=== PATIENT | male | born 1960 | race Caucasian/White ===

== ENCOUNTER 2024-05-11 02:10 | Observation (INO) ==
[2024-05-11] MEDS: ONDANSETRON INJ 2 MG/ML 2 ML VIAL IV STA (02:35)
[2024-05-11] MEDS: MoRPHine SULFATE 4 MG/ML 1 ML CARP\\VIAL IV PRN ×2 (02:36→09:32)
[2024-05-11 02:58] LABS: Basophils # (auto) 0.03 K/uL (0.00-0.20); Basophils % (auto) 0.3 %; Eosinophils # (auto) 0.25 K/uL (0.00-0.50); Eosinophils % (auto) 2.2 %; Hematocrit (blood only) 43.3 % (42.0-52.0); Hemoglobin 15.2 g/dl (14.0-18.0); Immature Granulocytes # (auto) 0.03 K/uL (0.01-0.20); Immature Granulocytes % (auto) 0.3 %; Lymphocytes # (auto) 3.45 K/uL (1.20-3.40); Lymphocytes % (auto) 30.1 %; Mean Corpuscular Hemoglobin 29.7 pg (25.0-34.0); Mean Corpuscular Hgb Conc 35.1 g/dL (32.0-36.0); Mean Corpuscular Volume 84.7 fL (80.0-100.0); Mean Platelet Volume 11.3 fL (9.4-12.4); Monocytes % (auto) 7.9 %; Neutrophils % (auto) 59.2 %; Platelet Count 234 K/uL (130-400); RDW Coefficient of Variation 12.6 % (11.5-14.5); RDW Standard Deviation 38.9 fL (36.4-46.3); Red Blood Count 5.11 M/uL (4.70-6.10); White Blood Count 11.46 K/ul (4.8-10.8)
[2024-05-11 03:06] LABS: BUN Creatinine Ratio 22.4 (10-20); Calcium 9.9 mg/dl (8.6-10.3); Potassium 4.1 mmol/L (3.5-5.1)
[2024-05-11 03:12] LABS: Troponin I High Sensitivity 5.8 pg/ml (0-20)
[2024-05-11 03:38] LABS: Albumin Globulin Ratio 1.6 (0.9-2); Albumin Level 4.9 gm/dl (3.4-5.0); Bilirubin,Total 0.5 mg/dl (0.2-1.0); Total Protein 7.9 gm/dl (6.0-8.3)
[2024-05-11] MEDS: OPTIRAY 320 100ml IV ONE (03:43)
[2024-05-11] MEDS: SODIUM CHLORIDE 0.9% 1,000 ML IV ONE ×2 (04:04→04:59)
--- NOTE | 2024-05-11 05:09 | Emergency Department Note ---
History of Present Illness General Chief complaint: Abdominal Pain Stated complaint: ABD PAIN Time Seen by Provider: 05/11/24 02:19 History of Present Illness Maximum Pain Intensity: 5 This is a 63-year-old male presenting to the emergency department for evaluation of abdominal pain that began approximately 2 hours prior to ER evaluation. Patient states that he awoke with pain that is across the upper part of his abdomen. He rates the pain a 5/10 and it does radiate into his back. He took Tums, however this did not improve his discomfort. He intermittently may have had symptoms like this for a few months, but this seems to be the worst event. He has not had fevers or chills. No nausea or vomiting. He does have past history of appendectomy as a young child. Home Medications Medication Instructions Recorded Confirmed Type ascorbic acid (vitamin C) 1,000 mg 1 g PO DAILY 01/18/20 05/11/24 History tablet (Vitamin C) cholecalciferol (vitamin D3) 125 5,000 unit PO DAILY 06/19/20 05/11/24 History mcg (5,000 unit) tablet (Vitamin D3) Medical Marijauna 1 dose PO UD PRN Pain 02/09/21 05/11/24 History fluticasone propionate 50 2 spray intranasal DAILY PRN Nasal 05/10/21 05/11/24 History mcg/actuation nasal Congestion spray,suspension (Flonase Allergy Relief) albuterol sulfate 90 mcg/actuation 2 puff inhalation Q6H PRN 10/31/21 05/11/24 Rx aerosol inhaler (Ventolin HFA) Shortness Of Breath Or Wheezing #18 grams fluticasone propionate 115 2 puff inhalation BID #12 grams 02/07/23 05/11/24 Rx mcg-salmeterol 21 mcg/actuation HFA inhaler (Advair HFA) fras-gtt-laumn-nqaejraos-nbbcujoa-tdym-pectin 4 tab PO QAM PRN Other 08/06/23 05/11/24 History 1,000 mg tablet (Fiber 6) clobetasol 0.05 % topical cream 1 applic topical BID PRN eczema 08/06/23 05/11/24 Rx #15 grams escitalopram oxalate 10 mg tablet 10 mg PO UD 08/06/23 05/11/24 History (Lexapro) bupropion HCl 300 mg 24 hr tablet, 450 mg PO UD 05/05/24 05/11/24 History extended release rosuvastatin 10 mg tablet (Crestor) 10 mg PO UD 05/11/24 05/11/24 History Allergies Allergy/AdvReac Type Severity Reaction Status Date / Time latex Allergy Intermediate Rash Verified 05/05/24 08:28 Sulfa (Sulfonamide Allergy Intermediate Rash Verified 05/05/24 08:28 Antibiotics) Past Med/Surg History Problem List (Updated 05/12/24 @ 04:09 by Reyes Moore PA-C) Acute upper abdominal pain (Acute) Acute pancreatitis (Acute) Musculoskeletal chest pain Exertional dyspnea Impaired fasting glucose Allergic rhinitis Obesity (BMI 30-39.9) Family history of coronary artery disease Bifascicular block Dyslipidemia Multiple drug allergies Allergic reaction to sulfonamide Depression Allergy-induced asthma Stable; uses rescue inhaler maybe once per year Medical marijuana use Chronic back pain Sleep apnea CPAP Medical History History of COVID-19 10/2021- no hosp; resolved Obesity Eczema Hearing deficit B/L hearing aids Surgical History Hx of spinal surgery History of open reduction and internal fixation (ORIF) procedure Broken toe (hardware since removed) Hx of vasectomy History of colonoscopy with polypectomy 01/2020 Repeat 3 years History of wisdom tooth extraction Hx of appendectomy Family History Mother Colon cancer Diabetes COPD (chronic obstructive pulmonary disease) Asthma Lung disease Father Stroke Brother Cardiac disorder Myocardial infarction Other Cancer No family history of adverse response to anesthesia Denies family history of Lung cancer Social History Smoking Status: Never smoker Second Hand Exposure: No; Do You Dip or Chew Tobacco: No; Hx Alcohol Use: Yes Alcohol type: beer and hard liquor Alcohol Intake Frequency: 2-3 x/Week Hx Substance Use: No Preferred Language: Bahraini Communication Ability: Effective Visual Impairment: Limited Hearing Ability: Use of Hearing Aid Pond Supervisor Required: No Beliefs That Will Affect Care: None marital status: Current Living Situation: Spouse Current Living Situation Comment: with and dog in two story home current occupational status: employed How many Children do You have: 3 Other Information That Helps Us Care for You: No Feels Safe at Home: Yes Safety Concerns: Feels Safe At This Time Childhood Exposure to Second-Hand Smoke: Yes Diet: regular caffeine: Yes Dental Care, Regularly: Yes Physical Activity Frequency: Does not Exercise Seatbelt Use: always Sunscreen Use: Yes Do you think of yourself as: straight/heterosexual Assistive Devices: CPAP, Glasses and Hearing Aid - Bilateral Review of Systems A total of 10 systems reviewed and were otherwise negative Physical Exam Vital Signs Vital Signs - 24 hr 05/11/24 05:04 05/11/24 06:01 05/11/24 06:31 Temperature 36.6 C Pulse Rate 67 75 62 Pulse Rate from SpO2 Sensor 68 75 Respiratory Rate 16 20 Blood Pressure 161/102 H 128/86 Blood Pressure Mean 125 96 Pulse Oximetry 98 96 Oxygen Delivery Method Room Air Room Air 05/11/24 07:00 05/11/24 07:00 05/11/24 07:03 Temperature Pulse Rate 69 Pulse Rate from SpO2 Sensor 67 Respiratory Rate 18 Blood Pressure 138/87 138/87 Blood Pressure Mean 102 102 Pulse Oximetry 96 Oxygen Delivery Method 05/11/24 07:33 05/11/24 07:48 05/11/24 07:51 Temperature Pulse Rate 72 69 68 Pulse Rate from SpO2 Sensor 70 68 68 Respiratory Rate 16 18 24 Blood Pressure Blood Pressure Mean Pulse Oximetry 96 97 97 Oxygen Delivery Method 05/11/24 08:06 05/11/24 08:12 05/11/24 08:36 Temperature Pulse Rate 63 63 78 Pulse Rate from SpO2 Sensor 63 63 78 Respiratory Rate 18 18 24 Blood Pressure Blood Pressure Mean Pulse Oximetry 97 95 96 Oxygen Delivery Method 05/11/24 08:42 05/11/24 09:00 05/11/24 09:00 Temperature Pulse Rate 70 69 Pulse Rate from SpO2 Sensor 70 70 Respiratory Rate 22 25 H Blood Pressure 128/78 Blood Pressure Mean 95 Pulse Oximetry 96 95 Oxygen Delivery Method 05/11/24 09:12 Temperature Pulse Rate 71 Pulse Rate from SpO2 Sensor 71 Respiratory Rate 23 Blood Pressure Blood Pressure Mean Pulse Oximetry 96 Oxygen Delivery Method VITALS: Vitals are noted on the nurse's note and reviewed by myself. Vital signs stable. GENERAL: Well-developed, well-nourished, white male, who is moderately uncomfortable appearing, but pleasant HEAD: Normocephalic atraumatic. MOUTH: Mucous membranes moist. Tonsils are not enlarged. Pharynx without erythema, blood, or exudate. Uvula midline. Airway patent. NECK: Supple without nuchal rigidity. No lymphadenopathy. No thyromegaly. Cervical spine is nontender. HEART: Regular rate and rhythm without murmurs gallops or rubs. LUNGS: Clear to auscultation bilaterally without wheezes, rales or rhonchi. No retractions or accessory muscle use. ABDOMEN: Positive normal bowel sounds x 4. Soft, protuberant abdomen with tenderness in the epigastric region. MUSCULOSKELETAL: No muscle atrophy, erythema, or edema noted. Full range of motion in all extremities. Course Administered Medications Bupropion HCl (Bupropion Xl 150 Mg Tabcr) 450 mg PO QAM [facility] Stop: 06/10/24 12:14 Last Admin: 05/11/24 13:21 Dose: 450 mg Documented By: MONALISA Sodium Chloride (Nss) 1,000 mls @ 200 mls/hr IV .Q5H [facility] Stop: 05/12/24 12:00 Last Admin: 05/12/24 03:44 Dose: 200 mls/hr Documented By: Infusion: 05/12/24 03:41 Dose: Infused Documented By: Admin: 05/11/24 22:41 Dose: 200 mls/hr Documented By: Infusion: 05/11/24 22:35 Dose: Infused Documented By: Admin: 05/11/24 17:35 Dose: 200 mls/hr Documented By: Infusion: 05/11/24 17:35 Dose: Infused Documented By: Admin: 05/11/24 12:38 Dose: 200 mls/hr Documented By: MONALISA Morphine Sulfate (Morphine Sulfate 4 Mg/Ml 1 Ml Carp\Vial) 4 mg IV Q3H PRN PRN Reason: Severe Pain (Scale 7, 8, 9,10) Stop: 05/25/24 06:18 Last Admin: 05/12/24 00:57 Dose: 4 mg Documented By: Admin: 05/11/24 15:12 Dose: 4 mg Documented By: Admin: 05/11/24 09:32 Dose: 4 mg Documented By: AM Morphine Sulfate (Morphine Sulfate 2 Mg/Ml Carp) 2 mg IV Q3H PRN PRN Reason: Moderate Pain (Scale 4, 5, 6) Stop: 05/25/24 06:18 Last Admin: 05/11/24 18:47 Dose: 2 mg Documented By: MONALISA Discontinued Medications Escitalopram Oxalate (Escitalopram Oxalate 10 Mg Tab) 10 mg PO DAILY [facility] Stop: 06/10/24 12:14 Last Admin: 05/11/24 13:20 Dose: Not Given Documented By: MONALISA Sodium Chloride (Nss) 1,000 mls @ 999 mls/hr IV .Q1H1M ONE Stop: 05/11/24 04:42 Last Infusion: 05/11/24 05:00 Dose: Infused Documented By: Admin: 05/11/24 04:04 Dose: 999 mls/hr Documented By: MARANDA Sodium Chloride (Nss) 1,000 mls @ 999 mls/hr IV .Q1H1M ONE Stop: 05/11/24 05:52 Last Infusion: 05/11/24 06:39 Dose: Infused Documented By: Admin: 05/11/24 04:59 Dose: 999 mls/hr Documented By: MARANDA Potassium Chloride/Sodium Chloride (Normal Saline W/20 Meq Kcl) 20 meq in 1,000 mls @ 80 mls/hr IV .[id number] [facility] Stop: 05/11/24 18:59 Last Infusion: 05/11/24 12:42 Dose: Infused Documented By: Admin: 05/11/24 07:44 Dose: 80 mls/hr Documented By: LV Ioversol (Optiray 320 100ml) 92 ml IV ONCE ONE Stop: 05/11/24 03:35 Last Admin: 05/11/24 03:43 Dose: 92 ml Documented By: BENEDICT Morphine Sulfate (Morphine Sulfate 4 Mg/Ml 1 Ml Carp\Vial) 4 mg IV Q30M PRN PRN Reason: Pain Stop: 05/25/24 02:25 Last Admin: 05/11/24 06:41 Dose: 4 mg Documented By: Admin: 05/11/24 04:48 Dose: 4 mg Documented By: Admin: 05/11/24 04:03 Dose: 4 mg Documented By: Admin: 05/11/24 02:36 Dose: 4 mg Documented By: MARANDA Ondansetron HCl (Ondansetron Inj 2 Mg/Ml 2 Ml Vial) 4 mg IV NOW STA Stop: 05/11/24 02:27 Last Admin: 05/11/24 02:35 Dose: 4 mg Documented By: MARANDA Medical Decision Making Differential Diagnosis Differential diagnosis: Etiologies such as biliary colic, cholecystitis, hepatitis, pancreatitis, cardiac disease, pancreatitis, gastritis, peptic ulcer disease, appendicitis, cystitis, diverticulitis, mesenteric ischemia, inflammatory bowel disease, ileus, bowel obstruction, testicular/adnexal torsion, aortic pathology, shingles, as well as others were considered Laboratory Data 05/11/24 02:26 05/11/24 02:26 Lab Results 05/11/24 Range/Units 02:26 WBC 11.46 H (4.8-10.8) K/ul RBC 5.11 (4.70-6.10) M/uL Hgb 15.2 (14.0-18.0) g/dl Hct 43.3 (42.0-52.0) % MCV 84.7 (80.0-100.0) fL MCH 29.7 (25.0-34.0) pg MCHC 35.1 (32.0-36.0) g/dL RDW Std Deviation 38.9 (36.4-46.3) fL RDW Coeff of Tory 12.6 (11.5-14.5) % Plt Count 234 (130-400) K/uL MPV 11.3 (9.4-12.4) fL Immature Gran % (Auto) 0.3 % Neut % (Auto) 59.2 % Lymph % (Auto) 30.1 % [place] % (Auto) 7.9 % Eos % (Auto) 2.2 % Baso % (Auto) 0.3 % Neut # (Auto) 6.80 H (1.40-6.50) K/uL Lymph # (Auto) 3.45 H (1.20-3.40) K/uL [place] # (Auto) 0.90 H (0.11-0.59) K/uL Eos # (Auto) 0.25 (0.00-0.50) K/uL Baso # (Auto) 0.03 (0.00-0.20) K/uL Immature Gran # (Auto) 0.03 (0.01-0.20) K/uL Sodium 137 (136-145) mmol/L Potassium 4.1 (3.5-5.1) mmol/L Chloride 104 (98-107) mmol/L Carbon Dioxide 26 (21-32) mmol/L Anion Gap 7 (3-11) BUN 24 H (6-23) mg/dl Creatinine 1.07 (0.6-1.4) mg/dl Est Cr Clr Drug Dosing 91.0 ml/min eGFR 77.49 BUN/Creatinine Ratio 22.4 H (10-20) Glucose 150 H (70-99(Fasting)) mg/dl Calcium 9.9 (8.6-10.3) mg/dl Total Bilirubin 0.5 (0.2-1.0) mg/dl AST 27 (13-39) U/L ALT 40 (7-52) U/L Alkaline Phosphatase 71 (34-104) U/L Troponin I High Sens 5.8 (0-20) pg/ml Total Protein 7.9 (6.0-8.3) gm/dl Albumin 4.9 (3.4-5.0) gm/dl Globulin 3.0 (2.5-4.0) gm/dl Albumin/Globulin Ratio 1.6 (0.9-2) Triglycerides 106 (0-150) mg/dl Cholesterol 127 (0-200) mg/dl LDL Cholesterol, Calc 61 mg/dl VLDL Cholesterol, Calc 21 (0-30) mg/dl HDL Cholesterol 45 mg/dl Cholesterol/HDL Ratio 2.8 (0-5) Amylase 2820 H (25-115) U/L Lipase 8231 H (11-82) U/L Imaging Data Radiologist's Impression: Abdomen/Pelvis CT 05/11/24 02:26 EXAM: CT abd pelvis IV con only CLINICAL HISTORY: abd pain/cramping 92 cc opti 320 TECHNIQUE: Contiguous axial images were obtained from the level of the diaphragm to the pubic symphysis with intravenous contrast. Coronal and sagittal reconstructions were likewise performed and indicated to increase the sensitivity for detecting clinically relevant pathology. If IV contrast material had not been administered, the likelihood of detecting abnormalities relevant to the patient's condition would have been substantially decreased. CT scan was performed according to ALARA (as low as reasonable achievable). COMPARISON: None. FINDINGS: The visualized lung bases are clear. The liver shows normal enhancement with a prominent papillary process of caudate lobe (normal anatomical variant). No focal liver lesions are seen. There is no intra or extrahepatic biliary ductal dilatation. Hepatic vasculature is patent. The gallbladder is unremarkable. The spleen and adrenal glands are unremarkable. The pancreas appears bulky with mild peripancreatic fat stranding and fluid. No organized or obvious hypoenhancing parenchymal area to suggest necrosis is seen on the present scan. The kidneys are normal in size and enhancement. There is no hydronephrosis or perinephric fat stranding. No renal calculi or renal masses are identified. The ureters are normal in caliber. The bladder is normal in contour. Few enlarged periportal and peripancreatic lymph nodes are noted, largest measuring 1.1 cm in short axis diameter (reactive lymphadenopathy). Redundant sigmoid colon is noted. Few small mural outpouchings are seen from the sigmoid and descending colon, without adjacent fluid or fat stranding Left small fat-containing inguinal hernia is noted. Anterior wedge-shaped compression fracture of L2 vertebral body is seen, with loss of 50% vertebral body height. IMPRESSION: 1. Acute edematous pancreatitis, with modified CT severity index of 4/10 (moderate pancreatitis). 2. Reactive lymphadenopathy. 3. Uncomplicated colonic diverticulosis. 4. Anterior wedge-shaped compression fracture of L2 vertebral body, with loss of 50% vertebral body height. Electronically signed by Shawn Austin 05-11-2024 05:16 AM MDM Narrative Physical exam and history were performed. Nursing notes, EMR, and Medication List were personally reviewed. No social concerns were identified as barriers to patients care. Patient appears to have abdominal pain bringing him to the ER. He does seem uncomfortable on presentation. IV access was established and labs were obtained. Patient was hydrated with normal saline and given IV morphine and IV Zofran for comfort. He was sent to CT scan for imaging of his abdomen and pelvis. Patient's blood work is as above and was reviewed. He does not have a significantly elevated white blood cell count, gross anemia, or significant electrolyte imbalance. Patient's lipase and amylase are both markedly elevated consistent with pancreatitis. LFTs are preserved. CT scan was reviewed by myself and radiology, and does show what seems to be an isolated pancreatitis. Remaining labs are essentially unremarkable. Patient did require several doses of analgesia. He does not seem well for discharge and escalation of care is felt to be necessary. Case was discussed with the on-call hospitalist, Dr. Giron, who agreed to evaluate the patient here in the ER. Please see the hospitalist dictation for further patient course, plan, and disposition. The chart was completed utilizing [employer] Speech Voice Recognition Software. Grammatical errors, random word insertions, pronoun errors, and incomplete sentences are an occasional consequence of this system due to software limitations, ambient noise, and hardware issues. Any formal questions or concerns about the content, text, or information contained within the body of this dictation should be directly addressed to the provider for clarification. Impression & Plan Acute pancreatitis, Acute upper abdominal pain Discharge Plan Visit Data Chief Complaint: Abdominal Pain Stated Complaint: ABD PAIN ED Provider: Brittanie Moss ED Midlevel Provider: Reyes Moore Discharge Problem: Acute pancreatitis, Acute upper abdominal pain Patient Disposition: Admitted As Inpatient Discharge Instructions Interventions: ED Discharge Assessment Last Done: 05/11/24 11:38
--- NOTE | 2024-05-11 05:48 | CT Scan Report ---
EXAM: CT abd pelvis IV con only CLINICAL HISTORY: abd pain/cramping 92 cc opti 320 TECHNIQUE: Contiguous axial images were obtained from the level of the diaphragm to the pubic symphysis with intravenous contrast. Coronal and sagittal reconstructions were likewise performed and indicated to increase the sensitivity for detecting clinically relevant pathology. If IV contrast material had not been administered, the likelihood of detecting abnormalities relevant to the patient's condition would have been substantially decreased. CT scan was performed according to ALARA (as low as reasonable achievable). COMPARISON: None. FINDINGS: The visualized lung bases are clear. The liver shows normal enhancement with a prominent papillary process of caudate lobe (normal anatomical variant). No focal liver lesions are seen. There is no intra or extrahepatic biliary ductal dilatation. Hepatic vasculature is patent. The gallbladder is unremarkable. The spleen and adrenal glands are unremarkable. The pancreas appears bulky with mild peripancreatic fat stranding and fluid. No organized or obvious hypoenhancing parenchymal area to suggest necrosis is seen on the present scan. The kidneys are normal in size and enhancement. There is no hydronephrosis or perinephric fat stranding. No renal calculi or renal masses are identified. The ureters are normal in caliber. The bladder is normal in contour. Few enlarged periportal and peripancreatic lymph nodes are noted, largest measuring 1.1 cm in short axis diameter (reactive lymphadenopathy). Redundant sigmoid colon is noted. Few small mural outpouchings are seen from the sigmoid and descending colon, without adjacent fluid or fat stranding Left small fat-containing inguinal hernia is noted. Anterior wedge-shaped compression fracture of L2 vertebral body is seen, with loss of 50% vertebral body height. IMPRESSION: 1. Acute edematous pancreatitis, with modified CT severity index of 4/10 (moderate pancreatitis). 2. Reactive lymphadenopathy. 3. Uncomplicated colonic diverticulosis. 4. Anterior wedge-shaped compression fracture of L2 vertebral body, with loss of 50% vertebral body height. Electronically signed by Shawn Austin 05-11-2024 05:16 AM
--- NOTE | 2024-05-11 06:22 | History & Physical Report ---
Date of Service May 11, 2024 Assessment & Plan (1) Acute pancreatitis: (2) Dyslipidemia: (3) Allergy-induced asthma: (4) Chronic back pain: (5) Sleep apnea: Plan Edematous pancreatitis- Graded as moderate/10 Lipase 8231, with normal LFTs Follow CBC with differential, chemistry profile, lipase and magnesium every morning Acetaminophen 650 mg by mouth every 6 hours as needed for mild pain or fever Morphine sulfate 2 mg IV every 3 hours as needed for moderate pain Morphine sulfate 4 mg IV every 3 hours as needed for severe pain NSS initial 1 L bolus, have asked the ED to give a second liter bolus Then maintenance normal saline plus KCl 20 mEq at 80 mL/h x 1 L Check a fasting lipid panel to assess for hypertriglyceridemia Allergy induced asthma Continue Advair discus or substitute, Flonase nasal spray, albuterol HFA as needed Obstructive sleep apnea- CPAP at bedtime Depression- Continue bupropion Lexapro History of Present Illness Chief Complaint: The patient presents to the emergency department with severe abdominal pain that began before going to bed, and kept him from sleeping overnight, and thus presents to the ED for assessment Primary Care Provider: Eric Muller DO The patient is a 63-year-old male with a past medical history including impaired fasting glucose, obesity, bifascicular block, depression, allergy induced asthma, medical marijuana use, chronic back pain syndrome status post lumbar discectomy, and MARYBEL. The patient reports that he had ongoing back pain for a few months, that he attributed to ranging his back a few months ago aggravating his chronic low back pain secondary to underlying discectomy. He reports that he had some indigestion over the past couple days, and then developed the acute onset of severe pain which kept him from sleeping this evening, and come to the ED for assessment. His who is with him, reports that he has had bad breath for the past couple months, and he then reports that his stool pattern has been significantly different during that time as well, with stools being more loose in consistency and more frequent. He denies any change in dietary patterns otherwise. He is on no new medications, has been taking his prescription medications as directed. Allergies Allergy/AdvReac Type Severity Reaction Status Date / Time latex Allergy Intermediate Rash Verified 05/05/24 08:28 Sulfa (Sulfonamide Allergy Intermediate Rash Verified 05/05/24 08:28 Antibiotics) Home Medications Medication Instructions Recorded Confirmed Type ascorbic acid (vitamin C) 1,000 mg 1 g PO DAILY 01/18/20 05/05/24 History tablet (Vitamin C) cholecalciferol (vitamin D3) 125 5,000 unit PO DAILY 06/19/20 05/05/24 History mcg (5,000 unit) tablet (Vitamin D3) Medical Marijauna 1 dose PO UD PRN Pain 02/09/21 05/05/24 History fluticasone propionate 50 2 spray intranasal DAILY PRN Nasal 05/10/21 05/05/24 History mcg/actuation nasal Congestion spray,suspension (Flonase Allergy Relief) albuterol sulfate 90 mcg/actuation 2 puff inhalation Q6H PRN 10/31/21 05/05/24 Rx aerosol inhaler (Ventolin HFA) Shortness Of Breath Or Wheezing #18 grams fluticasone propionate 115 2 puff inhalation BID #12 grams 02/07/23 05/05/24 Rx mcg-salmeterol 21 mcg/actuation HFA inhaler (Advair HFA) rosuvastatin 10 mg tablet (Crestor) 10 mg PO HS #90 tabs 06/19/23 05/05/24 Rx ljqa-siu-ftbqa-ngtedttnv-vlzwzrmi-nowu-pectin 4 tab PO QAM PRN 08/06/23 05/05/24 History 1,000 mg tablet (Fiber 6) clobetasol 0.05 % topical cream 1 applic topical BID PRN eczema 08/06/23 05/05/24 Rx #15 grams escitalopram oxalate 10 mg tablet 10 mg PO DAILY 08/06/23 05/05/24 History (Lexapro) bupropion HCl 300 mg 24 hr tablet, 450 mg PO QAM 05/05/24 History extended release Past Med/Surg History Problem List (Updated 05/11/24 @ 06:51 by Sherwin Giron MD) Acute pancreatitis Musculoskeletal chest pain Exertional dyspnea Impaired fasting glucose Allergic rhinitis Obesity (BMI 30-39.9) Family history of coronary artery disease Bifascicular block Dyslipidemia Multiple drug allergies Allergic reaction to sulfonamide Depression Allergy-induced asthma Stable; uses rescue inhaler maybe once per year Medical marijuana use Chronic back pain Sleep apnea CPAP Medical History History of COVID-19 10/2021- no hosp; resolved Obesity Eczema Hearing deficit B/L hearing aids Surgical History Hx of spinal surgery History of open reduction and internal fixation (ORIF) procedure Broken toe (hardware since removed) Hx of vasectomy History of colonoscopy with polypectomy 01/2020 Repeat 3 years History of wisdom tooth extraction Hx of appendectomy Family History Mother Colon cancer Diabetes COPD (chronic obstructive pulmonary disease) Asthma Lung disease Father Stroke Brother Cardiac disorder Myocardial infarction Other Cancer No family history of adverse response to anesthesia Denies family history of Lung cancer Social History Smoking Status: Never smoker Second Hand Exposure: No; Do You Dip or Chew Tobacco: No; Hx Alcohol Use: Yes Alcohol type: beer, wine and hard liquor Alcohol Intake Frequency: 2-3 x/Week Hx Substance Use: Yes (medical marijuana- advised) Prescribed Medications: Marijuana Last Used Substance Other:: 1 week ago- 03/2023 Preferred Language: Mac[place] Communication Ability: Effective Visual Impairment: Limited Hearing Ability: Use of Hearing Aid [employer] Required: No marital status: Current Living Situation: Spouse current occupational status: employed How many Children do You have: 3 Feels Safe at Home: Yes Childhood Exposure to Second-Hand Smoke: Yes Diet: regular caffeine: Yes Dental Care, Regularly: Yes Physical Activity Frequency: Does not Exercise Seatbelt Use: always Sunscreen Use: Yes Do you think of yourself as: straight/heterosexual Assistive Devices: CPAP, Glasses and Hearing Aid - Bilateral Review of Systems Review of Systems: The patient denies chest pain, palpitations, shortness of breath, dyspnea on exertion, cough, lower extremity swelling, sore throat, fevers, chills, sweats, nausea, vomiting, blood in urine or stool, dysuria, urinary frequency or urgency, lightheadedness, dizziness, headache, memory loss, loss of consciousness, rash, abnormal bruising or bleeding, imbalance, focal or generalized weakness, numbness or tingling in arms or legs, generalized arthralgias or myalgias, neck pain, or night sweats. The review of systems is otherwise negative other than for that already noted above, and at least 10 systems have been reviewed. Physical Exam Physical Exam: The patient is awake, alert and oriented 3, well developed and well nourished, normocephalic and atraumatic, lying in bed and in no acute distress. HEENT--PERRL, EOMI, mucous membranes and oropharynx mildly dry. Neck--supple. No JVD. No bruits. Thyroid normal, trachea midline, no adenopathy. Heart--normal S1 and S2. No murmurs, rubs or gallops. Lungs--clear bilaterally, no respiratory distress, no accessory muscle use. Abdomen--normal bowel sounds and soft. Nontender. Nondistended. Morbidly obese Extremities-- No edema. Dermatologic--normal skin turgor, normal color, no abnormal lymph nodes, no rash . Neurologic--cranial nerves II through XII grossly intact. Rheumatologic--normal range of motion. Psychiatric--normal affect. Results & Data Results & Data Vital Signs (Past 12 Hours) Vital Signs Temp Pulse Pulse Resp BP BP Pulse Ox 05/11/24 02:39 73 05/11/24 02:26 75 16 96 05/11/24 02:26 36 C L 75 18 168/104 H 98 05/11/24 02:12 36.4 C L 76 22 190/101 H 95 O2 Del Method 05/11/24 02:39 05/11/24 02:26 Room Air 05/11/24 02:26 Room Air 05/11/24 02:12 Room Air Laboratory Results Laboratory Results WBC 11.46 K/ul (4.8-10.8) H 05/11/24 02:26 RBC 5.11 M/uL (4.70-6.10) 05/11/24 02:26 Hgb 15.2 g/dl (14.0-18.0) 05/11/24 02:26 Hct 43.3 % (42.0-52.0) 05/11/24 02:26 MCV 84.7 fL (80.0-100.0) 05/11/24 02:26 MCH 29.7 pg (25.0-34.0) 05/11/24 02:26 MCHC 35.1 g/dL (32.0-36.0) 05/11/24 02:26 RDW Std Deviation 38.9 fL (36.4-46.3) 05/11/24 02: RDW Coeff of Tory 12.6 % (11.5-14.5) 05/11/24 02:26 Plt Count 234 K/uL (130-400) 05/11/24 02:26 MPV 11.3 fL (9.4-12.4) 05/11/24 02:26 Immature Gran % (Auto) 0.3 % 05/11/24 02:26 Neut % (Auto) 59.2 % 05/11/24 02:26 Lymph % (Auto) 30.1 % 05/11/24 02:26 [place] % (Auto) 7.9 % 05/11/24 02:26 Eos % (Auto) 2.2 % 05/11/24 02:26 Baso % (Auto) 0.3 % 05/11/24 02:26 Neut # (Auto) 6.80 K/uL (1.40-6.50) H 05/11/24 02:26 Lymph # (Auto) 3.45 K/uL (1.20-3.40) H 05/11/24 02:26 [place] # (Auto) 0.90 K/uL (0.11-0.59) H 05/11/24 02:26 Eos # (Auto) 0.25 K/uL (0.00-0.50) 05/11/24 02:26 Baso # (Auto) 0.03 K/uL (0.00-0.20) 05/11/24 02:26 Immature Gran # (Auto) 0.03 K/uL (0.01-0.20) 05/11/24 02:26 Sodium 137 mmol/L (136-145) 05/11/24 02:26 Potassium 4.1 mmol/L (3.5-5.1) 05/11/24 02:26 Chloride 104 mmol/L (98-107) 05/11/24 02:26 Carbon Dioxide 26 mmol/L (21-32) 05/11/24 02:26 Anion Gap 7 (3-11) 05/11/24 02:26 BUN 24 mg/dl (6-23) H 05/11/24 02:26 Creatinine 1.07 mg/dl (0.6-1.4) 05/11/24 02:26 Est Cr Clr Drug Dosing 91.0 ml/min 05/11/24 02:26 eGFR 77.49 05/11/24 02:26 BUN/Creatinine Ratio 22.4 (10-20) H 05/11/24 02:26 Glucose 150 mg/dl (70-99(Fasting)) H 05/11/24 02:26 Calcium 9.9 mg/dl (8.6-10.3) 05/11/24 02:26 Total Bilirubin 0.5 mg/dl (0.2-1.0) 05/11/24 02:26 AST 27 U/L (13-39) 05/11/24 02:26 ALT 40 U/L (7-52) 05/11/24 02:26 Alkaline Phosphatase 71 U/L (34-104) 05/11/24 02:26 Troponin I High Sens 5.8 pg/ml (0-20) 05/11/24 02:26 Total Protein 7.9 gm/dl (6.0-8.3) 05/11/24 02:26 Albumin 4.9 gm/dl (3.4-5.0) 05/11/24 02:26 Globulin 3.0 gm/dl (2.5-4.0) 05/11/24 02:26 Albumin/Globulin Ratio 1.6 (0.9-2) 05/11/24 02:26 Amylase 2820 U/L (25-115) H 05/11/24 02:26 Lipase 8231 U/L (11-82) H 05/11/24 02:26 Impressions Abdomen/Pelvis CT 05/11/24 02:26 EXAM: CT abd pelvis IV con only CLINICAL HISTORY: abd pain/cramping 92 cc opti 320 TECHNIQUE: Contiguous axial images were obtained from the level of the diaphragm to the pubic symphysis with intravenous contrast. Coronal and sagittal reconstructions were likewise performed and indicated to increase the sensitivity for detecting clinically relevant pathology. If IV contrast material had not been administered, the likelihood of detecting abnormalities relevant to the patient's condition would have been substantially decreased. CT scan was performed according to ALARA (as low as reasonable achievable). COMPARISON: None. FINDINGS: The visualized lung bases are clear. The liver shows normal enhancement with a prominent papillary process of caudate lobe (normal anatomical variant). No focal liver lesions are seen. There is no intra or extrahepatic biliary ductal dilatation. Hepatic vasculature is patent. The gallbladder is unremarkable. The spleen and adrenal glands are unremarkable. The pancreas appears bulky with mild peripancreatic fat stranding and fluid. No organized or obvious hypoenhancing parenchymal area to suggest necrosis is seen on the present scan. The kidneys are normal in size and enhancement. There is no hydronephrosis or perinephric fat stranding. No renal calculi or renal masses are identified. The ureters are normal in caliber. The bladder is normal in contour. Few enlarged periportal and peripancreatic lymph nodes are noted, largest measuring 1.1 cm in short axis diameter (reactive lymphadenopathy). Redundant sigmoid colon is noted. Few small mural outpouchings are seen from the sigmoid and descending colon, without adjacent fluid or fat stranding Left small fat-containing inguinal hernia is noted. Anterior wedge-shaped compression fracture of L2 vertebral body is seen, with loss of 50% vertebral body height. IMPRESSION: 1. Acute edematous pancreatitis, with modified CT severity index of 4/10 (moderate pancreatitis). 2. Reactive lymphadenopathy. 3. Uncomplicated colonic diverticulosis. 4. Anterior wedge-shaped compression fracture of L2 vertebral body, with loss of 50% vertebral body height. Electronically signed by Shawn Austin 05-11-2024 05:16 AM Code Status & VTE Plan Code Status full code PG Care Time/CCT Total # of Minutes Spent Total Time Spent with Patient: Total time spent is greater than 50% in coordination of care (as documented) at patient's floor/unit and/or counseling patient: Coding Level of Care Code 90230 INT INP/OBS CARE 3/75MIN Diagnoses Acute pancreatitis K85.90 Dyslipidemia E78.5 Allergy-induced asthma J45.909 Chronic back pain M54.9; G89.29 Sleep apnea G47.30
[2024-05-11 07:08] LABS: Chol HDL Ratio 2.8 (0-5)
[2024-05-11] MEDS: NSS + 20MEQ KCL 20 MEQ/1,000 ML BAG IV SCH (07:44)
--- NOTE | 2024-05-11 08:35 | Electrocardiogram Report ---
Test Reason : Blood Pressure : */* mmHG Vent. Rate : 77 BPM Atrial Rate : 77 BPM P-R Int : 170 ms QRS Dur : 142 ms QT Int : 418 ms P-R-T Axes : 39 -59 21 degrees QTcB Int : 473 ms Normal sinus rhythm Right bundle branch block with repolarization abnormality Left anterior fascicular block Abnormal ECG When compared with ECG of 05-May-2024 09:04, T wave inversion more evident in Anterior leads Confirmed by Bebo Thornton ([id number]) on 05/11/2024 8:34:34 AM Referred By: REFERRED SELF Confirmed By: Bebo Thornton
[2024-05-11] MEDS ORDERED: ALBUTEROL HFA 8 GM INHALER INH PRN (12:01)
[2024-05-11] MEDS ORDERED: FLUTICASONE PROPIONATE NA SPR 16 GM BTL NAE PRN (12:01)
[2024-05-11] MEDS: SODIUM CHLORIDE 0.9% 1,000 ML IV SCH (12:38)
--- NOTE | 2024-05-11 12:52 | Communication Note ---
Date of Service: May 11, 2024 63 y/o man admitted this AM, moderate acute pancreatitis of unknown etiology CT abdomen/pelvis without contrast showed moderate pancreatitis, no gallstones. AST/ALT not elevated. He has had episodes of intermittent mid-epigastric pain recent years. Ordered abdominal US to check for gallstone dz Triglycerides not elevated Has had some regular alcohol use but never more than 3-4 drinks Has taken NSAIDS recently for back pain (naproxen at HS PRN), is on rosuvastatin, no new meds No personal or family history of pancreatitis Plan: Acute pancreatitis - aggressive IVF x 48h - had 2L IVD in ED, continue IV NS (LR shortage) at 200/h. Symptom control. Sips/chips. AM CMP CBC - hold rosuvastatin though statin-induced pancreatitis is rare - Abdominal US - MRCP if no clear etiology found Possibly developing mild ileus related to acute pancreatitis - mild distention on exam but with active bowel tones - supportive care L2 compression fracture - confirmed this is an old fracture from a traumatic fall on construction site. Chronic LBP with recent flareup (vs pancreatitis related back pain) Updated his , son at bedside
[2024-05-11] MEDS: ESCITALOPRAM OXALATE 10 MG TAB PO SCH (13:20)
[2024-05-11] MEDS: buPROPion XL 150 MG TABCR PO SCH (13:21)
[2024-05-11] MEDS: MoRPHine SULFATE 2 MG/ML CARP IV PRN (18:47)
[2024-05-11] MEDS ORDERED: ROSUVASTATIN CALCIUM 10 MG TAB PO SCH (21:00)
--- NOTE | 2024-05-12 00:08 | Ultrasound Report ---
Exam(s): US ABDOMEN LIMITED EXAM: US Abdomen Limited, Right Upper Quadrant CLINICAL HISTORY: Reason for exam: acute pancreatitis, please evaluate for gallstones. TECHNIQUE: Real-time ultrasound of the right upper quadrant with image documentation. COMPARISON: No relevant prior studies available. FINDINGS: Liver: Hepatomegaly. No intrahepatic bile duct dilation. Gallbladder: Gallbladder wall measures 3 mm. No gallstones. Common bile duct: Unremarkable as visualized. No stones. No dilation. Pancreas: Unremarkable as visualized. Right kidney: Unremarkable. No stones. No solid mass. No hydronephrosis. IMPRESSION: No acute findings in the right upper quadrant. Electronically signed by: Bk Morgan MD 05/12/24 00:07 AM
[2024-05-12 06:45] LABS: Basophils # (auto) 0.02 K/uL (0.00-0.20); Basophils % (auto) 0.2 %; Eosinophils # (auto) 0.04 K/uL (0.00-0.50); Eosinophils % (auto) 0.4 %; Hematocrit (blood only) 38.8 % (42.0-52.0); Hemoglobin 13.1 g/dl (14.0-18.0); Immature Granulocytes # (auto) 0.03 K/uL (0.01-0.20); Immature Granulocytes % (auto) 0.3 %; Lymphocytes # (auto) 2.28 K/uL (1.20-3.40); Lymphocytes % (auto) 22.5 %; Mean Corpuscular Hgb Conc 33.8 g/dL (32.0-36.0); Mean Corpuscular Volume 85.8 fL (80.0-100.0); Mean Platelet Volume 11.3 fL (9.4-12.4); Monocytes # (auto) 0.83 K/uL (0.11-0.59); Monocytes % (auto) 8.2 %; Neutrophils # (auto) 6.93 K/uL (1.40-6.50); Neutrophils % (auto) 68.4 %; Platelet Count 188 K/uL (130-400); RDW Coefficient of Variation 12.7 % (11.5-14.5); RDW Standard Deviation 39.4 fL (36.4-46.3); Red Blood Count 4.52 M/uL (4.70-6.10); White Blood Count 10.13 K/ul (4.8-10.8)
[2024-05-12 07:27] LABS: Albumin Globulin Ratio 1.6 (0.9-2); Albumin Level 3.7 gm/dl (3.4-5.0); BUN Creatinine Ratio 18.3 (10-20); Bilirubin,Total 0.7 mg/dl (0.2-1.0); Calcium 8.3 mg/dl (8.6-10.3); Globulin 2.3 gm/dl (2.5-4.0); Potassium 4.2 mmol/L (3.5-5.1)
[2024-05-12] MEDS: FLUTICASONE/VILANTEROL 200/25MCG 14 PUFFS/INHALER INH SCH (08:55)
[2024-05-12 09:05] LABS: Magnesium 1.7 mg/dl (1.7-2.4)
--- NOTE | 2024-05-12 11:05 | Hospitalist Progress Note ---
Date of Service May 12, 2024 Assessment & Plan (1) Acute pancreatitis: (2) Dyslipidemia: (3) Chronic back pain: (4) Sleep apnea: Plan 63 y/o man admitted with moderate acute pancreatitis of unknown etiology. has improved with bowel rest, IV fluids though continues to have abdominal pain. CT abdomen/pelvis without contrast showed moderate pancreatitis, no gallstones. AST/ALT not elevated, Remains low today. He has had episodes of intermittent mid-epigastric pain recent years. abdominal US reviewedno evidence of gallstones Triglycerides not elevated Has had some regular alcohol use but never more than 3-4 drinks Has taken NSAIDS recently for back pain (naproxen at HS PRN), is on rosuvastatin, no new meds No personal or family history of pancreatitis Plan: Acute pancreatitis - aggressive IVF x 48h - continue IV NS (LR shortage) at 200/h through midday tomorrow. Symptom control with morphine IV as needed, antiemetics as needed. Advance diet to clear liquids. reviewed CBC and CMP today which are unremarkable with white blood count decreased to 10, LFTs remaining normal, creatinine remaining at baseline - hold rosuvastatin though statin-induced pancreatitis is rare - no clear etiology so may warrant advanced imaging either MRCP or EUS. Discussed this with Anup and his today he does not feel like he can tolerate MRCP even with some antianxiety medicine, had difficulty even tolerating open MRI for his back problems in the past, so he could need anesthesia if we attempted to get MRCP. Will consult gastroenterology mild ileus related to acute pancreatitis - improved/resolving, no longer distended passing normal amount of flatus today L2 compression fracture - confirmed this is an old fracture from a traumatic fall on construction site. Chronic LBP with recent flareup (vs pancreatitis related back pain) Allergy induced asthma Continue Advair discus or substitute, Flonase nasal spray, albuterol HFA as needed Obstructive sleep apnea- CPAP at bedtime Depression- Continue bupropion Lexapro DVT prophylaxis - enoxaparin Admission and Anticipated Discharge Date Admission Date: May 11, 2024 Subjective upper abdominal pain is still present but has improved since yesterday. no nausea/vomiting. tolerating chips/sips now passing flatus regularly no stools overnight Physical Exam 2 Physical Exam: PHYSICAL EXAMINATION Last 24h vital signs reviewed, see documentation in flowsheet General: comfortable appearing, no distress HEENT: Normocephalic, atraumatic, pupils round and equal, sclerae anicteric, no conjunctival injection, moist mucus membranes Lungs: Normal respiratory effort. Clear to auscultation bilaterally. No RRW Heart: Regular rate and rhythm, no murmurs. No JVD Abdomen: Soft, nondistended. tender to palpation in epigastric area without rigidity rebound or guarding. active Bowel sounds present. Extremities: Warm, dry, well-perfused. No extremity edema. Neuro: Alert and oriented x 4, face symmetric, moves 4 extremities well Psych: Normal affect and behavior Results & Data Results & Data Vital Signs (Past 12 Hours) Vital Signs Temp Pulse Resp BP Pulse Ox O2 Del Method 05/12/24 07:16 99.0 F 91 H 20 167/76 H 95 Room Air Laboratory Results 05/12/24 05:43 05/12/24 05:43 PG Care Time/CCT Total # of Minutes Spent Total Time Spent with Patient: Total time spent is greater than 50% in coordination of care (as documented) at patient's floor/unit and/or counseling patient: Coding Level of Care Code 67774 SUB INP/OBS CARE 3/50MIN Diagnoses Acute pancreatitis K85.90 Dyslipidemia E78.5 Chronic back pain M54.9; G89.29 Sleep apnea G47.30
--- NOTE | 2024-05-12 11:43 | Gastrointestinal Consultation ---
Date of Consultation May 12, 2024 Assessment & Plan (1) Acute pancreatitis: Plan Patient is a 63 year old male who is admitted with first episode of pancreatitis. he also has had some increased reflux symptoms. He tells me that he has increased his etoh use recently since the election and escalated from drinking beer to drinking whiskey and wine. This is likely the cause of his pancreatitis. - I advised he cease ETOH use. - would avoid nsaids. - recommend supportive care of IVF and pain control. - start famotidine 40mg once daily for indigestion symptoms. suspect increased indigestion symptoms also stem from increased alcohol intake with nsaid use. - further recommendations to follow, see Dr. Moe's append. Supervising Physician Co-Signing Physician Notes I examined the patient and reviewed patient's chart , laboratory data and imaging studies. I agree with with assessment and plan of care as suggested by advanced practice provider. Acute pancreatitis of unclear etiology. Negative abdominal ultrasound for gallstones, normal liver function tests, normal triglycerides. Moderate alcohol consumption, unlikely cause of acute pancreatitis. Continue supportive care. Continue famotidine. Further evaluation with an endoscopic ultrasound in 6 to 8 weeks will be arranged through our office. History of Present Illness Reason for Consultation: acute pancreatitis Requesting Physician: Klaudia Jones MD Attending Physician: Klaudia Jones MD History of Present Illness Patient is a 63 year old male with a past medical history including impaired fasting glucose, obesity, bifascicular block, depression, allergy induced asthma, medical marijuana use, chronic back pain syndrome status post lumbar discectomy, and MARYBEL who presented to the ED on 05/11 with complaints of 10/10 epigastric abdominal pain that had awoken him from his sleep. He tells me he has had some increased indigestion and has used famotidine as an outpatient with benefit. he admits to recent increase in nsaid use due to back pain. Upon evaluation in the ED, he had CT showing moderate acute pancreatitis. he had follow up US that was unremarkable. Patient tells me has a history of regular alcohol use of beer. He tells me it would not be unusual to have 2 beers a day. Since the recent election he admits he has been drinking more and has been drinking whiskey and wine. He can have some nausea and reflux type symptoms that seem to be worse with this. In the past year, he tells me he will have 3-4 stools daily that are formed, which is an increase in frequency for him. no blood in the stools or melena. no family history of pancreatitis. this is his first episode of pancreatitis. Since admission, he tells me his pain has significantly improved. he rates as a 10 today. 05/11/24 amylase 2820, lipase 8231, LFTs wnl. CT 05/11/24 Acute edematous pancreatitis, with modified CT severity index of 4/10 (moderate pancreatitis). Reactive lymphadenopathy. Uncomplicated colonic diverticulosis. Anterior wedge-shaped compression fracture of L2 vertebral body, with loss of 50% vertebral body height. US 05/11/24 No acute findings in the right upper quadrant. colonoscopy 04/2023 diverticulosis, internal hemorrhoids, and colon polyps. next colonoscopy recommended in 3 years. Allergies Allergy/AdvReac Type Severity Reaction Status Date / Time latex Allergy Intermediate Rash Verified 05/05/24 08:28 Sulfa (Sulfonamide Allergy Intermediate Rash Verified 05/05/24 08:28 Antibiotics) Home Medications Medication Instructions Recorded Confirmed Type ascorbic acid (vitamin C) 1,000 mg 1 g PO DAILY 01/18/20 05/11/24 History tablet (Vitamin C) cholecalciferol (vitamin D3) 125 5,000 unit PO DAILY 06/19/20 05/11/24 History mcg (5,000 unit) tablet (Vitamin D3) Medical Marijauna 1 dose PO UD PRN Pain 02/09/21 05/11/24 History fluticasone propionate 50 2 spray intranasal DAILY PRN Nasal 05/10/21 05/11/24 History mcg/actuation nasal Congestion spray,suspension (Flonase Allergy Relief) albuterol sulfate 90 mcg/actuation 2 puff inhalation Q6H PRN 10/31/21 05/11/24 Rx aerosol inhaler (Ventolin HFA) Shortness Of Breath Or Wheezing #18 grams fluticasone propionate 115 2 puff inhalation BID #12 grams 02/07/23 05/11/24 Rx mcg-salmeterol 21 mcg/actuation HFA inhaler (Advair HFA) [id number]-[id number]-uzlvhkwcc-bcponwll-wmei-pectin 4 tab PO QAM PRN Other 08/06/23 05/11/24 History 1,000 mg tablet (Fiber 6) clobetasol 0.05 % topical cream 1 applic topical BID PRN eczema 08/06/23 05/11/24 Rx #15 grams escitalopram oxalate 10 mg tablet 10 mg PO UD 08/06/23 05/11/24 History (Lexapro) bupropion HCl 300 mg 24 hr tablet, 450 mg PO UD 05/05/24 05/11/24 History extended release rosuvastatin 10 mg tablet (Crestor) 10 mg PO UD 05/11/24 05/11/24 History Patient History Medical History History of COVID-19 10/2021- no hosp; resolved Obesity Eczema Hearing deficit B/L hearing aids Surgical History Hx of spinal surgery History of open reduction and internal fixation (ORIF) procedure Broken toe (hardware since removed) Hx of vasectomy History of colonoscopy with polypectomy 01/2020 Repeat 3 years History of wisdom tooth extraction Hx of appendectomy Family History Mother Colon cancer Diabetes COPD (chronic obstructive pulmonary disease) Asthma Lung disease Father Stroke Brother Cardiac disorder Myocardial infarction Other Cancer No family history of adverse response to anesthesia Denies family history of Lung cancer Social History Smoking Status: Never smoker Second Hand Exposure: No; Do You Dip or Chew Tobacco: No; Hx Alcohol Use: Yes Alcohol type: beer and hard liquor Alcohol Intake Frequency: 2-3 x/Week Hx Substance Use: No Preferred Language: Italian Communication Ability: Effective Visual Impairment: Limited Hearing Ability: Use of Hearing Aid Senior Private Client Advisor Required: No Beliefs That Will Affect Care: None marital status: Current Living Situation: Spouse Current Living Situation Comment: with and dog in two story home current occupational status: employed How many Children do You have: 3 Other Information That Helps Us Care for You: No Feels Safe at Home: Yes Safety Concerns: Feels Safe At This Time Childhood Exposure to Second-Hand Smoke: Yes Diet: regular caffeine: Yes Dental Care, Regularly: Yes Physical Activity Frequency: Does not Exercise Seatbelt Use: always Sunscreen Use: Yes Do you think of yourself as: straight/heterosexual Assistive Devices: CPAP, Glasses and Hearing Aid - Bilateral Review of Systems Review of Systems: All systems reviewed & are unremarkable except as noted in HPI & below Physical Exam Constitutional: WD/WN, vitals as above Respiratory: normal respiratory effort, lungs clear to auscultation Cardiovascular: Rate/Rhythm: regular rate and regular rhythm Gastrointestinal (Abdomen): mild epigastric tenderness to palpation, no guarding, soft, normal bowel sounds. Psychiatric: Orientation: alert and oriented x 3 Affect: euthymic affect Results & Data Vital Signs (Past 12 Hours) Vital Signs Temp Pulse Resp BP Pulse Ox O2 Del Method 05/12/24 07:16 99.0 F 91 H 20 167/76 H 95 Room Air Coding Level of Care Code 99079 IN/OBS CONSULT LVL 4,60M Diagnoses Acute pancreatitis K85.90
[2024-05-12] MEDS: ENOXAPARIN INJ 40 MG/0.4 ML SYR SQ SCH (15:25)
[2024-05-12 20:05] VITALS: RESP 16
[2024-05-13 05:14] LABS: Basophils # (auto) 0.02 K/uL (0.00-0.20); Basophils % (auto) 0.2 %; Eosinophils # (auto) 0.14 K/uL (0.00-0.50); Eosinophils % (auto) 1.7 %; Hematocrit (blood only) 37.5 % (42.0-52.0); Hemoglobin 12.6 g/dl (14.0-18.0); Immature Granulocytes # (auto) 0.02 K/uL (0.01-0.20); Immature Granulocytes % (auto) 0.2 %; Lymphocytes # (auto) 2.38 K/uL (1.20-3.40); Mean Corpuscular Hemoglobin 28.9 pg (25.0-34.0); Mean Corpuscular Hgb Conc 33.6 g/dL (32.0-36.0); Mean Platelet Volume 11.1 fL (9.4-12.4); Monocytes # (auto) 0.78 K/uL (0.11-0.59); Monocytes % (auto) 9.5 %; Neutrophils # (auto) 4.86 K/uL (1.40-6.50); Neutrophils % (auto) 59.4 %; Platelet Count 184 K/uL (130-400); RDW Coefficient of Variation 12.6 % (11.5-14.5); RDW Standard Deviation 39.6 fL (36.4-46.3); Red Blood Count 4.36 M/uL (4.70-6.10)
[2024-05-13 05:30] LABS: Albumin Globulin Ratio 1.5 (0.9-2); Albumin Level 3.7 gm/dl (3.4-5.0); BUN Creatinine Ratio 10.1 (10-20); Bilirubin,Total 0.6 mg/dl (0.2-1.0); Calcium 8.1 mg/dl (8.6-10.3); Creatinine Clr Calc Pharmacy 98.6 ml/min; Globulin 2.4 gm/dl (2.5-4.0); Magnesium 1.7 mg/dl (1.7-2.4); Potassium 3.9 mmol/L (3.5-5.1); Total Protein 6.1 gm/dl (6.0-8.3)
[2024-05-13 08:00] VITALS: BP 159/86; PULSE 90; TEMP 98.6; O2SAT 95
[2024-05-13] MEDS: FAMOTIDINE 40 MG TABLET PO SCH (09:16)
--- NOTE | 2024-05-13 17:10 | Discharge Summary ---
Discharge Summary Date of Service May 13, 2024 Principal Dx & Hospital Course #1 = Principal Diagnosis (1) Acute pancreatitis: (2) Dyslipidemia: (3) Chronic back pain: (4) Sleep apnea: Plan 63 y/o man admitted with moderate acute pancreatitis of unknown etiology. CT abdomen/pelvis without contrast showed moderate pancreatitis, no gallstones. AST/ALT not elevated abdominal US no evidence of gallstones Triglycerides not elevated Has had some regular alcohol use but never more than 3-4 drinks Has taken NSAIDS recently for back pain (naproxen at HS PRN), is on rosuvastatin, no new meds No personal or family history of pancreatitis Plan: Acute pancreatitis - treated with aggressive IVF x 48h, bowel rest, symptom control with morphine IV as needed, antiemetics as needed. - improved, pain resolved, and tolerated advancement of diet 12/12 - hold rosuvastatin though statin-induced pancreatitis is rare, avoid alcohol, avoid NSIDS - consulted gastroenterology since no clear etiology determined - sent IGG4 l neva (pending) for autoimmune and plans EUS in 6-8 weeks mild ileus related to acute pancreatitis - resolved, having BMs dyspepsia, intermittent/chronic - added famotidine L2 compression fracture - confirmed this is an old fracture from a traumatic fall on construction site. Chronic LBP with recent flareup (vs pancreatitis related back pain) Allergy induced asthma Continue Advair discus or substitute, Flonase nasal spray, albuterol HFA as needed Obstructive sleep apnea- CPAP at bedtime Depression- Continue bupropion Lexapro Notes For Next Care Provider unclear etiology of pancreatitis advised stop alcohol rosuvastatin held until GI follow up - statin induced pancreatitis is rare IGG4 levels pending F/U with GI in 6-8 weeks for EUS Medication Changes From Visit #14 oxycodone 5 mg and ondansetron PRN. Admission HPI Per Admitting Provider The patient is a 63-year-old male with a past medical history including impaired fasting glucose, obesity, bifascicular block, depression, allergy induced asth ma, medical marijuana use, chronic back pain syndrome status post lumbar discectomy, and MARYBEL. The patient reports that he had ongoing back pain for a few months, that he attributed to ranging his back a few months ago aggravating his chronic low back pain secondary to underlying discectomy. He reports that he had some indigestion over the past couple days, and then developed the acute onset of severe pain which kept him from sleeping this evening, and come to the ED for assessment. His who is with him, reports that he has had bad breath for the past couple months, and he then reports that his stool pattern has been significantly different during that time as well, with stools being more loose in consistency and more frequent. He denies any change in dietary patterns otherwise. He is on no new medications, has been taking his prescription medications as directed. Discharge Exam PHYSICAL EXAMINATION Last 24h vital signs reviewed, see documentation in flowsheet General: comfortable appearing, no distress, sitting up in chair HEENT: Normocephalic, atraumatic, pupils round and equal, sclerae anicteric, no conjunctival injection, moist mucus membranes Lungs: Normal respiratory effort. Clear to auscultation bilaterally. No RRW Heart: Regular rate and rhythm, no murmurs. No JVD Abdomen: Soft, nondistended, nontender, active BTs Extremities: Warm, dry, well-perfused. No extremity edema. Neuro: Alert and oriented x 4, face symmetric, moves 4 extremities well Psych: Normal affect and behavior Discharge Plan Discharge Items Patient Disposition: Home - Self-Care Reason For Visit: ACUTE PANCREATITIS Discharge Diagnosis: Acute pancreatitis Activity: Resume your previous activity Non-emergency contact: Primary Care Provider and [employer] Helper Call non-emergency contact if: you have any medication questions and your symptoms worsen Follow-up/Referrals: Eric Muller, [Primary Care Provider] - Diet: Low Fat Addtl Attending Provider Instructions: You were treated for acute pancreatitis The cause is unclear at this time. Please follow up with gastroenterology for endoscopic ultrasound in 6-8 weeks. The clinic should be calling you to schedule. We did not find any gallstones and your triglyceride level was normal. Immunoglobulin panel is pending - there are rare cases of autoimmune pancreatitis associated with IgG4 Alcohol can cause pancreatitis but you did not clearly drink enough alcohol to trigger it - avoid all alcohol at this time since it could cause worsening Statins can very rarely cause pancreatitis - hold your rosuvastatin until you follow up with gastroenterology and discuss with them whether to restart it Also avoid nsaids as much as possible (ibuprofen/motrin/advil or naproxen/aleve), acetaminophen is safe to take as directed Follow a bland low fat diet for 1-2 weeks until your symptoms completely resolve I sent prescriptions for some pain and nausea medication - these can be sedating, do not drive or operate heavy machinery while taking these. Seek medical attention if you have worsening abdominal pain, vomiting or fevers It was a pleasure taking care of you in the hospital, Klaudia Jones MD Pending Studies at Discharge: Yes (IGG4 levels) Stand-Alone Forms: My [facility] [employer], Pain - Opioid Pain Management, Smoking Cessation Medications and DC Order Prescriptions: New famotidine 20 mg tablet 40 mg PO DAILY Qty: 60 0RF Rx Instructions: buy over the counter - for indigestion/heartburn oxycodone 5 mg tablet 5 - 10 mg PO Q4H PRN (Reason: pain) Qty: 14 0RF ondansetron 4 mg tablet,disintegrating 4 mg PO Q6H PRN (Reason: nausea and vomiting) Qty: 14 0RF Continued albuterol sulfate [Ventolin HFA] 90 mcg/actuation HFA aerosol inhaler 2 puff INHALATION Q6H PRN (Reason: Shortness Of Breath Or Wheezing) Qty: 18 3RF Rx Instructions: no fill history available fluticasone propion-salmeterol [Advair HFA] 115-21 mcg/actuation HFA aerosol inhaler 2 puff inhalation BID Qty: 12 2RF escitalopram oxalate [Lexapro] 10 mg tablet 10 mg PO UD Rx Instructions: 10 mg po daily. last filled 07/29 30 day supply clobetasol 0.05 % cream 1 applic topical BID PRN (Reason: eczema) Qty: 15 1RF Rx Instructions: no fill history available Apply to areas of the legs twice daily x 2 weeks as directed for flaring. bupropion HCl 300 mg tablet extended release 24 hr 450 mg PO UD Rx Instructions: 450 mg po qam. last filled (both 300 mg and 150 mg doses for total 450mg) 03/23 30 day suplly ascorbic acid (vitamin C) [Vitamin C] 1,000 mg Tablet 1 g PO DAILY Rx Instructions: otc cholecalciferol (vitamin D3) [Vitamin D3] 125 mcg (5,000 unit) tablet 5,000 unit PO DAILY Fiber 6 1,000 mg tablet 4 tab PO QAM PRN (Reason: Other) Rx Instructions: otc fluticasone propionate [Flonase Allergy Relief] 50 mcg/actuation spray,suspension 2 spray INTRANASAL DAILY PRN (Reason: Nasal Congestion) Rx Instructions: otc Medical Marijauna 1 dose PO UD PRN (Reason: Pain) Patient Comments: OIL BASE TEXTURE, USES SL Held rosuvastatin [Crestor] 10 mg tablet 10 mg PO UD Hold Instructions: Resume on 06/10/24. hold until ok'd to resume by gastroenterology or primary care Rx Instructions: 10 mg po hs. no fill history available Discharge Orders: Discharge Order (Routine); Ordered 05/13/24 Ordered By: Klaudia Jones Admission Data Admit Date/Time: 05/11/24 09:37 Attending Provider: Klaudia Jones Admit Provider: Klaudia Jones Primary Care Provider: Eric Muller Other Providers: Sherwin Giron; Costa Moe Other Interventions: Discharge Summary Assessment (RN) Last Done: 05/13/24 18:27 Hospital Stay Data Consultations 05/11/24 06:15 ED Decision to Admit Stat 05/12/24 10:58 Consult Gastroenterology Routine Diagnostic Imagining Performed 05/11/24 02:26 CT abd pelvis IV con only Stat 05/11/24 17:15 US abdomen limited Routine Pending Results Patient Have Any Pending Studies at Discharge: Yes (IGG4 levels) Discharge Instructions Given to Patient (Per Discharging Provider) You were treated for acute pancreatitis The cause is unclear at this time. Please follow up with gastroenterology for endoscopic ultrasound in 6-8 weeks. The clinic should be calling you to schedule. We did not find any gallstones and your triglyceride level was normal. Immunoglobulin panel is pending - there are rare cases of autoimmune pancreatitis associated with IgG4 Alcohol can cause pancreatitis but you did not clearly drink enough alcohol to trigger it - avoid all alcohol at this time since it could cause worsening Statins can very rarely cause pancreatitis - hold your rosuvastatin until you follow up with gastroenterology and discuss with them whether to restart it Also avoid nsaids as much as possible (ibuprofen/motrin/advil or naproxen/aleve), acetaminophen is safe to take as directed Follow a bland low fat diet for 1-2 weeks until your symptoms completely resolve I sent prescriptions for some pain and nausea medication - these can be sedating, do not drive or operate heavy machinery while taking these. Seek medical attention if you have worsening abdominal pain, vomiting or fevers It was a pleasure taking care of you in the hospital, Klaudia Jones MD Total Time Total Time Spent Total Time Spent (In Minutes): <30 Coding Level of Care Code 21302 IN/OBS DISCH 30 MIN/LESS Diagnoses Acute pancreatitis K85.90 Dyslipidemia E78.5 Chronic back pain M54.9; G89.29 Sleep apnea G47.30
[2024-05-18 13:07] LABS: Immunoglobulin G4 19.5 mg/dL (4.0-86.0)
== END 2024-05-13 19:16 | disposition home or self-care (01) | DRG 439 ==
LOC: SUATTDRO → ED 02:10 → 3N 09:37 → INTOOBSV 09:37 → 3N 11:38

== ENCOUNTER 2024-07-31 04:09 | Inpatient (IN) ==
--- NOTE | 2024-07-31 04:20 | Emergency Department Note ---
Impression & Plan Acute pancreatitis ED Provider Note CHIEF COMPLAINT: Abdominal pain HISTORY OF PRESENTING ILLNESS: This 64-year-old male patient presents to the emergency department for evaluation of sudden onset of abdominal pain and nausea that is radiating to his lower back. He has a history of pancreatitis and states that the symptoms feel the same. He has been having normal bowel movements without constipation or diarrhea. Denies any urinary symptoms. His first episode of pancreatitis was in May 2024 and he states that they thought it was from his gallbladder. He had an EGD and EUS the end of June that showed a benign polyp in his stomach and sludge in his gallbladder. He also states that the tip of the pancreas was not fully healed on the EUS. He is scheduled with a surgeon in August to talk about CCY. He had not had any ETOH for the past 2 months, but then has had 1 beer a week for the past 2-3 weeks and had 2 beers 2-3 days ago. He was also really good about avoiding trigger foods previously, but has been a little more lax recently. No fevers. Nausea, but no vomiting. Denies chest pain or SOB. He has not taken anything for the symptoms yet. He is not on any blood thinners. I reviewed the patient's discharge summary from 05/13/2024. CT scan from 05/11/2024 showed acute edematous moderate pancreatitis. Reactive lymphadenopathy. Right upper quadrant ultrasound from 05/11/2024 was normal. LFTs were normal. Triglycerides were normal. The patient was treated with aggressive IV fluids. He was advised to hold his rosuvastatin, avoid alcohol, adjust his diet, and avoid NSAIDs. The patient had an EUS on 06/29/2024 that showed no significant pathology in the ampulla. No significant pathology in the common bile duct. There was hyperechoic material consistent with sludge in the gallbladder. No evidence of significant pathology in the visualized portion of the liver. No sign of significant pathology in the entire pancreas, but there was diffuse hypoechoic changes in the tail area likely related to recent pancreatitis. No discrete mass found. Recommendations were to consider cholecystectomy. They also recommended a repeat CT scan of the abdomen in 3 months to assure resolution of the changes in the tail area. REVIEW OF SYSTEMS: See HPI for pertinent positives and pertinent negatives. ALLERGIES: Latex, Sulfa MEDICATIONS: See below PAST MEDICAL HISTORY: See below PHYSICAL EXAM: VITALS: Vitals are noted on the nurse's note and reviewed by myself. GENERAL: Non toxic, in no acute distress, non-diaphoretic. SKIN: Capillary refill <2 sec. EYES: PERRLA. EOMI. Conjunctivae without injection, sclerae without icterus. NOSE: Patent without discharge. MOUTH: Mucous membranes moist. Uvula midline. Airway patent. NECK: Supple without nuchal rigidity. HEART: Regular rate and rhythm without murmurs gallops or rubs. LUNGS: Clear to auscultation bilaterally without wheezes, rales or rhonchi. No retractions or accessory muscle use. ABDOMEN: Positive bowel sounds x 4. Normal tympanic percussion. Soft, diffusely tender to palpation with maximal tenderness in the periumbilical and epigastric region. No masses or hepatosplenomegaly. Villegas sign negative. No CVA tenderness. No guarding, rigidity, or rebound tenderness. No focal RLQ or LLQ tenderness. MUSCULOSKELETAL: No gross musculoskeletal defects. NEURO: Patient was alert and oriented. No focal neurological deficits. DIFFERENTIAL DIAGNOSIS: Differential diagnosis includes hepatitis, pancreatitis, cholecystitis, cholelithiasis, appendicitis, kidney stone, pyelonephritis, UTI, gastritis, gastroenteritis, mesenteric adenitis, obstruction, constipation, hernia, abdominal abscess, perforation, diverticulitis, IBD, ischemic colitis, abdominal aortic aneurysm, testicular torsion, prostatitis, or others. ED COURSE AND MEDICAL DECISION MAKING: MEDICATIONS GIVEN: 1 L normal saline solution bolus. Tylenol 1000 mg IV. Zofran 4 mg IV and morphine 4 mg IV. MONITOR: Continuous statement clerks supervisor: Order was placed for continuous statement clerks supervisor. Patient was placed on the statement clerks supervisor and continuous pulse ox. Patient was noted to be in normal sinus rhythm at an initial rate of 70 bpm per my interpretation. EKG: EKG was interpreted by myself as sinus bradycardia at 57 bpm with a right bundle branch block and left anterior fascicular block. No acute ST or T wave changes. No significant change from his previous EKG. INTERPRETATION OF LABS: I interpreted the labs with full lab results as below in the lab section of this note. Laboratory results pertinent to the emergent complaint are discussed in the MDM section below. The patient was advised to follow up with their PCP and/or specialist(s) for further outpatient monitoring and management of any abnormal results. INTERPRETATION OF IMAGING: Imaging studies were interpreted by myself and read by radiology as per the imaging section of this note. The patient was advised to follow up with their PCP and/or specialist(s) for further outpatient management of any non-emergent abnormal findings. Chest x-ray negative for acute cardiopulmonary etiology. CT scan of the abdomen pelvis with IV contrast shows acute edematous pancreatitis with a moderate severity. There is also peripancreatic fat stranding which is increased from his previous CT scan. The reactive lymphadenopathy is stable. Diverticulosis without evidence of diverticulitis. Stable anterior wedge shaped compression fracture of L2 vertebral body with loss of 50% vertebral height. EXTERNAL RECORDS REVIEWED: I reviewed the patient's previous admission for pancreatitis as well as his outpatient US as summarized above. CONSULTATIONS: On-call hospitalist [facility] SUMMARY: I examined the patient. The patient presents to the emergency department for sudden onset of abdominal pain radiating to his back. He had an episode of pancreatitis felt to be secondary to his gallbladder in May 2024. The patient states that the symptoms feel similar. The patient states that he had been doing well with avoiding alcohol and trigger foods for 2 months after his previous episode, but over the past couple weeks has not been as good as he should. He has an appointment in August with a surgeon to discuss possible cholecystectomy. The patient had an outpatient EUS performed as above. An IV lock was placed and labs were drawn. The patient was given 1 L normal saline solution bolus. He was given Tylenol 1000 mg IV, morphine 4 mg IV, and Zofran 4 mg IV with good improvement of his pain and nausea. CBC without leukocytosis, anemia, or thrombocytopenia. PT/INR was normal. Glucose 151, but CMP otherwise normal. High-sensitivity troponin normal. Lipase elevated at 3758. Urinalysis normal. Chest x-ray negative for acute cardiopulmonary etiology. CT scan of the abdomen pelvis with IV contrast shows acute edematous pancreatitis with a moderate severity. There is also peripancreatic fat stranding which is increased from his previous CT scan. The reactive lymphadenopathy is stable. Diverticulosis without evidence of diverticulitis. Stable anterior wedge shaped compression fracture of L2 vertebral body with loss of 50% vertebral height. The patient will require admission for further evaluation and treatment of the acute pancreatitis. I spoke with the on-call hospitalist who agreed to admit the patient for further management. Please refer to their dictation for further details. The patient's care was transferred in stable condition. DIAGNOSIS: Acute pancreatitis Past Med/Surg History Problem List (Updated 07/31/24 @ 07:58 by Cee Arndt PA-C) Hypogammaglobulinemia Abnormal laboratory test result Recurrent infections Acute pancreatitis (Acute) Musculoskeletal chest pain Exertional dyspnea Impaired fasting glucose Allergic rhinitis Obesity (BMI 30-39.9) Family history of coronary artery disease Bifascicular block Dyslipidemia Multiple drug allergies Allergic reaction to sulfonamide Depression Allergy-induced asthma Stable; uses rescue inhaler maybe once per year Medical marijuana use Chronic back pain Sleep apnea CPAP Medical History History of COVID-19 Obesity Eczema Hearing deficit Surgical History Hx of spinal surgery History of open reduction and internal fixation (ORIF) procedure Hx of vasectomy History of colonoscopy with polypectomy History of wisdom tooth extraction Hx of appendectomy Family History Mother Colon cancer Diabetes COPD (chronic obstructive pulmonary disease) Asthma Lung disease Father Stroke Brother Cardiac disorder Myocardial infarction Other Cancer No family history of adverse response to anesthesia Denies family history of Lung cancer Social History Smoking Status: Never smoker Second Hand Exposure: No; Do You Dip or Chew Tobacco: No; Hx Alcohol Use: Yes Alcohol type: beer and hard liquor Alcohol Intake Frequency: 2-3 x/Week Hx Substance Use: No Preferred Language: Turkish Communication Ability: Effective Visual Impairment: Limited Hearing Ability: Use of Hearing Aid Civil Design Technician Required: No Beliefs That Will Affect Care: None marital status: Current Living Situation: Spouse Current Living Situation Comment: with and dog in two story home current occupational status: employed How many Children do You have: 3 Feels Safe at Home: Yes Childhood Exposure to Second-Hand Smoke: Yes Diet: regular caffeine: Yes Dental Care, Regularly: Yes Physical Activity Frequency: Does not Exercise Seatbelt Use: always Sunscreen Use: Yes Do you think of yourself as: straight/heterosexual Assistive Devices: CPAP Allergies Allergies Allergy/AdvReac Type Severity Reaction Status Date / Time latex Allergy Intermediate Rash Verified 06/23/24 15:28 Sulfa (Sulfonamide Allergy Intermediate Rash Verified 06/23/24 15:28 Antibiotics) Home Meds Home Medications Medication Instructions Recorded Confirmed ascorbic acid (vitamin C) 1,000 mg 1 g PO DAILY 01/18/20 06/23/24 tablet (Vitamin C) cholecalciferol (vitamin D3) 125 5,000 unit PO DAILY 06/19/20 06/23/24 mcg (5,000 unit) tablet (Vitamin D3) Medical Marijauna 1 dose PO UD PRN Pain 02/09/21 06/23/24 fluticasone propionate 50 2 spray intranasal DAILY PRN Nasal 05/10/21 06/23/24 mcg/actuation nasal Congestion spray,suspension (Flonase Allergy Relief) bupropion HCl 300 mg 24 hr tablet, 450 mg PO UD 05/05/24 06/23/24 extended release rosuvastatin 10 mg tablet (Crestor) 10 mg PO UD 05/11/24 06/23/24 Previous Rx's Medication Instructions Recorded albuterol sulfate 90 mcg/actuation 2 puff inhalation Q6H PRN 10/31/21 aerosol inhaler (Ventolin HFA) Shortness Of Breath Or Wheezing #18 grams fluticasone propionate 115 2 puff inhalation BID #12 grams 02/07/23 mcg-salmeterol 21 mcg/actuation HFA inhaler (Advair HFA) clobetasol 0.05 % topical cream 1 applic topical BID PRN eczema 08/06/23 #15 grams famotidine 20 mg tablet 40 mg (2 x 20 mg) PO DAILY #60 tabs 05/13/24 Results & Data (ED) Vital Signs Vital Signs - 24 hr 07/31/24 04:12 07/31/24 04:45 07/31/24 05:13 Temperature 36.6 C Temperature Source Oral Pulse Rate 73 57 L Pulse Rate [Apical] Respiratory Rate 18 Respiratory Effort / Characteristics Non-Labored Spontaneous Respiratory Depth Normal Respiratory Pattern Regular Blood Pressure 154/82 H Blood Pressure [Right Arm] Blood Pressure Mean 106 Blood Pressure Mean [Right Arm] Blood Pressure Position [Right Arm] Pulse Oximetry 96 95 Oxygen Delivery Method Room Air Room Air Sepsis Recent Fever Within 48 Hours No Sepsis New/Unexplained Change in Mental Status N/A Sepsis Action Taken by Nursing No Action Required 07/31/24 06:57 Temperature Temperature Source Pulse Rate Pulse Rate [Apical] 69 Respiratory Rate 18 Respiratory Effort / Characteristics Non-Labored Spontaneous Respiratory Depth Normal Respiratory Pattern Regular Blood Pressure Blood Pressure [Right Arm] 150/99 H Blood Pressure Mean Blood Pressure Mean [Right Arm] 116 Blood Pressure Position [Right Arm] Semi-fowlers Pulse Oximetry 98 Oxygen Delivery Method Room Air Sepsis Recent Fever Within 48 Hours Sepsis New/Unexplained Change in Mental Status Sepsis Action Taken by Nursing Laboratory Data 07/31/24 04:54 07/31/24 04:54 Lab Results 07/31/24 Range/Units 04:54 WBC 10.30 (4.8-10.8) K/ul RBC 5.08 (4.70-6.10) M/uL Hgb 14.6 (14.0-18.0) g/dl Hct 42.4 (42.0-52.0) % MCV 83.5 (80.0-100.0) fL MCH 28.7 (25.0-34.0) pg MCHC 34.4 (32.0-36.0) g/dL RDW Std Deviation 40.9 (36.4-46.3) fL RDW Coeff of Tory 13.3 (11.5-14.5) % Plt Count 232 (130-400) K/uL MPV 11.3 (9.4-12.4) fL Immature Gran % (Auto) 0.2 % Neut % (Auto) 62.9 % Lymph % (Auto) 27.0 % [place] % (Auto) 7.1 % Eos % (Auto) 2.5 % Baso % (Auto) 0.3 % Neut # (Auto) 6.48 (1.40-6.50) K/uL Lymph # (Auto) 2.78 (1.20-3.40) K/uL R[place]ford # (Auto) 0.73 H (0.11-0.59) K/uL Eos # (Auto) 0.26 (0.00-0.50) K/uL Baso # (Auto) 0.03 (0.00-0.20) K/uL Immature Gran # (Auto) 0.02 (0.01-0.20) K/uL PT 10.6 (9.0-12.0) Seconds INR 1.0 (0.9-1.1) Sodium 136 (136-145) mmol/L Potassium 4.4 (3.5-5.1) mmol/L Chloride 106 (98-107) mmol/L Carbon Dioxide 24 (21-32) mmol/L Anion Gap 6 (3-11) BUN 19 (6-23) mg/dl Creatinine 1.10 (0.6-1.4) mg/dl Est Cr Clr Drug Dosing Not Reportable eGFR 74.50 BUN/Creatinine Ratio 17.3 (10-20) Glucose 151 H (70-99(Fasting)) mg/dl Calcium 9.5 (8.6-10.3) mg/dl Total Bilirubin 0.4 (0.2-1.0) mg/dl AST 28 (13-39) U/L ALT 36 (7-52) U/L Alkaline Phosphatase 79 (34-104) U/L Troponin I High Sens < 2.3 (0-20) pg/ml Total Protein 7.0 (6.0-8.3) gm/dl Albumin 4.5 (3.4-5.0) gm/dl Globulin 2.5 (2.5-4.0) gm/dl Albumin/Globulin Ratio 1.8 (0.9-2) Lipase 3758 H (11-82) U/L Urine Color Yellow Urine Appearance Clear (Clear) Urine pH 5.5 (4.5-7.5) Ur Specific [place] 1.021 (1.000-1.030) Urine Protein Negative (Negative) Urine Glucose (UA) Negative (Negative) Urine Ketones Negative (Negative) Urine Blood Negative (Negative) Urine Nitrite Negative (Negative) Urine Bilirubin Negative (Negative) Urine Urobilinogen Negative (Negative) Ur Leukocyte Esterase Negative (Negative) Administered Medications Discontinued Medications Sodium Chloride (Nss) 1,000 mls @ 999 mls/hr IV .Q1H1M ONE Stop: 07/31/24 05:29 Last Infusion: 07/31/24 05:55 Dose: Infused Documented By: Admin: 07/31/24 05:01 Dose: 999 mls/hr Documented By: MAURA Acetaminophen (Ofirmev) 1,000 mg in 100 mls @ 400 mls/hr IV NOW STA Stop: 07/31/24 04:43 Last Infusion: 07/31/24 05:23 Dose: Infused Documented By: Admin: 07/31/24 05:04 Dose: 400 mls/hr Documented By: MAURA Ioversol (Optiray 320 100ml) 93 ml IV ONCE ONE Stop: 07/31/24 05:59 Last Admin: 07/31/24 05:58 Dose: 93 ml Documented By: PLW Morphine Sulfate (Morphine Sulfate 4 Mg/Ml 1 Ml Carp\Vial) 4 mg IV NOW STA Stop: 07/31/24 05:19 Last Admin: 07/31/24 05:22 Dose: 4 mg Documented By: EMB Ondansetron HCl (Ondansetron Inj 2 Mg/Ml 2 Ml Vial) 4 mg IV NOW STA Stop: 07/31/24 04:30 Last Admin: 07/31/24 05:02 Dose: 4 mg Documented By: EMB Imaging Data Radiologist's Impression: Abdomen/Pelvis CT 07/31/24 04:30 EXAM: CT abd pelvis IV con only CLINICAL HISTORY: Abdominal pain, h/o pancreatitis and GB sludge TECHNIQUE: Contiguous axial images were obtained from the level of the diaphragm to the pubic symphysis with intravenous contrast. Coronal and sagittal reconstructions were likewise performed and indicated to increase the sensitivity for detecting clinically relevant pathology. If IV contrast material had not been administered, the likelihood of detecting abnormalities relevant to the patient's condition would have been substantially decreased. CT scan was performed according to ALARA (as low as reasonable achievable). COMPARISON: 11 May 2024 FINDINGS: The visualized lung bases are clear. The liver shows normal enhancement with a prominent papillary process of caudate lobe (normal anatomical variant). No focal liver lesions are seen. There is no intra or extrahepatic biliary ductal dilatation. Hepatic vasculature is patent. The gallbladder is unremarkable. The spleen and adrenal glands are unremarkable. The pancreas appears bulky with mild peripancreatic fat stranding and fluid. No organized or obvious hypoenhancing parenchymal area to suggest necrosis is seen on the present scan. The kidneys are normal in size and enhancement. There is no hydronephrosis or perinephric fat stranding. No renal calculi or renal masses are identified. The ureters are normal in caliber. The bladder is normal in contour. Few enlarged periportal and peripancreatic lymph nodes are noted, largest measuring 1.1 cm in short axis diameter (reactive lymphadenopathy). Redundant sigmoid colon is noted. Multiple small uncomplicated colonic diverticulosis Left small fat-containing inguinal hernia is noted. Anterior wedge-shaped compression fracture of L2 vertebral body is seen, with loss of 50% vertebral body height. IMPRESSION: 1. Acute edematous pancreatitis, with modified CT severity index of 4/10 (moderate pancreatitis).- peripancreatic fat stranding is increased. 2. Reactive lymphadenopathy.-stable. 3. Uncomplicated colonic diverticulosis.-stable. 4. Anterior wedge-shaped compression fracture of L2 vertebral body, with loss of 50% vertebral body height.-stable. Electronically signed by Shawn Austin 07-31-2024 07:28 AM Chest X-Ray 07/31/24 04:30 EXAM: XR chest 1V portable CLINICAL HISTORY: Abdominal pain TECHNIQUE: X-ray images of the chest were obtained in frontal projection. COMPARISON: 05/10/2021 FINDINGS: Pulmonary Parenchyma: Lungs are clear bilaterally. No evidence of consolidation, collapse, or focal opacities. No pulmonary nodules identified. No evidence of pleural effusion or pleural thickening. Heart and Mediastinum: Heart size and shape are normal. No mediastinal widening or masses. No hilar or mediastinal lymphadenopathy. Bony Thorax: Bony thorax appears intact without fractures or deformities. Soft Tissues: Soft tissues overlying the chest wall are unremarkable. IMPRESSION: 1. Normal chest X-ray. No acute cardiopulmonary abnormalities identified. 2. No interval changes. Electronically signed by Dennis Gee 07-31-2024 06:57 AM Discharge Plan Visit Data Chief Complaint: Abdominal Pain Stated Complaint: ABD PAIN ED Provider: Carlos Eduardo Avalos ED Midlevel Provider: Cee Arndt Discharge Problem: Acute pancreatitis Patient Disposition: Admitted As Inpatient Condition: Good Prescriptions Prescriptions: No Action albuterol sulfate [Ventolin HFA] 90 mcg/actuation HFA aerosol inhaler 2 puff INHALATION Q6H PRN (Reason: Shortness Of Breath Or Wheezing) Qty: 18 3RF Rx Instructions: no fill history available fluticasone propion-salmeterol [Advair HFA] 115-21 mcg/actuation HFA aerosol inhaler 2 puff inhalation BID Qty: 12 2RF clobetasol 0.05 % cream 1 applic topical BID PRN (Reason: eczema) Qty: 15 1RF Rx Instructions: no fill history available Apply to areas of the legs twice daily x 2 weeks as directed for flaring. bupropion HCl 300 mg tablet extended release 24 hr 450 mg PO UD Rx Instructions: 450 mg po qam. last filled (both 300 mg and 150 mg doses for total 450mg) 03/23 30 day suplly ascorbic acid (vitamin C) [Vitamin C] 1,000 mg Tablet 1 g PO DAILY Rx Instructions: otc cholecalciferol (vitamin D3) [Vitamin D3] 125 mcg (5,000 unit) tablet 5,000 unit PO DAILY fluticasone propionate [Flonase Allergy Relief] 50 mcg/actuation spray,suspension 2 spray INTRANASAL DAILY PRN (Reason: Nasal Congestion) Rx Instructions: otc Medical Marijauna 1 dose PO UD PRN (Reason: Pain) Patient Comments: OIL BASE TEXTURE, USES SL rosuvastatin [Crestor] 10 mg tablet 10 mg PO UD Hold Instructions: Resume on 06/10/24. hold until ok'd to resume by gastroenterology or primary care Rx Instructions: 10 mg po hs. no fill history available famotidine 20 mg tablet 40 mg PO DAILY Qty: 60 0RF Rx Instructions: buy over the counter - for indigestion/heartburn Referrals Referrals: Eric Muller DO [Primary Care Provider] - Discharge Problem: Acute pancreatitis Qualifiers: Pancreatitis type: unspecified pancreatitis type Acute pancreatitis complication: unspecified Qualified Code(s): K85.90 - Acute pancreatitis without necrosis or infection, unspecified
[2024-07-31] MEDS: SODIUM CHLORIDE 0.9% 1,000 ML IV ONE (05:01)
[2024-07-31] MEDS: ONDANSETRON INJ 2 MG/ML 2 ML VIAL IV STA (05:02)
[2024-07-31] MEDS: ACETAMINOPHEN 1,000 MG/100 ML VIAL IV STA (05:04)
[2024-07-31 05:05] LABS: Appearance Urine Clear (Clear); Bilirubin Urine Negative (Negative); Blood Urine Negative (Negative); Color Urine Yellow; Glucose Urine UA Negative (Negative); Ketones Urine Negative (Negative); Leukocyte Esterase Urine Negative (Negative); Nitrite Urine Negative (Negative); Protein Urine Negative (Negative); Specific Gravity Urine 1.021 (1.000-1.030); Urobilinogen Urine Negative (Negative); pH Urine 5.5 (4.5-7.5)
[2024-07-31 05:15] LABS: Basophils # (auto) 0.03 K/uL (0.00-0.20); Basophils % (auto) 0.3 %; Eosinophils # (auto) 0.26 K/uL (0.00-0.50); Eosinophils % (auto) 2.5 %; Hematocrit (blood only) 42.4 % (42.0-52.0); Hemoglobin 14.6 g/dl (14.0-18.0); Immature Granulocytes # (auto) 0.02 K/uL (0.01-0.20); Immature Granulocytes % (auto) 0.2 %; Lymphocytes # (auto) 2.78 K/uL (1.20-3.40); Mean Corpuscular Hemoglobin 28.7 pg (25.0-34.0); Mean Corpuscular Hgb Conc 34.4 g/dL (32.0-36.0); Mean Corpuscular Volume 83.5 fL (80.0-100.0); Mean Platelet Volume 11.3 fL (9.4-12.4); Monocytes # (auto) 0.73 K/uL (0.11-0.59); Monocytes % (auto) 7.1 %; Neutrophils # (auto) 6.48 K/uL (1.40-6.50); Neutrophils % (auto) 62.9 %; Platelet Count 232 K/uL (130-400); RDW Coefficient of Variation 13.3 % (11.5-14.5); RDW Standard Deviation 40.9 fL (36.4-46.3); Red Blood Count 5.08 M/uL (4.70-6.10)
[2024-07-31] MEDS: MoRPHine SULFATE 4 MG/ML 1 ML CARP\\VIAL IV STA (05:22)
[2024-07-31 05:29] LABS: Anion Gap 6 (3-11); BUN Creatinine Ratio 17.3 (10-20); Blood Urea Nitrogen 19 mg/dl (6-23); Calcium 9.5 mg/dl (8.6-10.3); Carbon Dioxide 24 mmol/L (21-32); Chloride 106 mmol/L (98-107); Glucose 151 mg/dl (70-99(Fasting)); Potassium 4.4 mmol/L (3.5-5.1); Sodium 136 mmol/L (136-145)
[2024-07-31 05:35] LABS: Troponin I High Sensitivity < 2.3 pg/ml (0-20)
[2024-07-31 05:46] LABS: Alanine Aminotransferase 36 U/L (7-52); Albumin Globulin Ratio 1.8 (0.9-2); Albumin Level 4.5 gm/dl (3.4-5.0); Alkaline Phosphatase 79 U/L (34-104); Aspartate Aminotransferase 28 U/L (13-39); Bilirubin,Total 0.4 mg/dl (0.2-1.0); Globulin 2.5 gm/dl (2.5-4.0); Lipase 3758 U/L (11-82)
[2024-07-31 05:49] LABS: Prothrombin Time 10.6 Seconds (9.0-12.0)
[2024-07-31] MEDS: OPTIRAY 320 100ml IV ONE (05:58)
--- NOTE | 2024-07-31 06:58 | XRay Report ---
EXAM: XR chest 1V portable CLINICAL HISTORY: Abdominal pain TECHNIQUE: X-ray images of the chest were obtained in frontal projection. COMPARISON: 05/10/2021 FINDINGS: Pulmonary Parenchyma: Lungs are clear bilaterally. No evidence of consolidation, collapse, or focal opacities. No pulmonary nodules identified. No evidence of pleural effusion or pleural thickening. Heart and Mediastinum: Heart size and shape are normal. No mediastinal widening or masses. No hilar or mediastinal lymphadenopathy. Bony Thorax: Bony thorax appears intact without fractures or deformities. Soft Tissues: Soft tissues overlying the chest wall are unremarkable. IMPRESSION: 1. Normal chest X-ray. No acute cardiopulmonary abnormalities identified. 2. No interval changes. Electronically signed by Dennis Gee 07-31-2024 06:57 AM
--- NOTE | 2024-07-31 07:29 | CT Scan Report ---
EXAM: CT abd pelvis IV con only CLINICAL HISTORY: Abdominal pain, h/o pancreatitis and GB sludge TECHNIQUE: Contiguous axial images were obtained from the level of the diaphragm to the pubic symphysis with intravenous contrast. Coronal and sagittal reconstructions were likewise performed and indicated to increase the sensitivity for detecting clinically relevant pathology. If IV contrast material had not been administered, the likelihood of detecting abnormalities relevant to the patient's condition would have been substantially decreased. CT scan was performed according to ALARA (as low as reasonable achievable). COMPARISON: 11 May 2024 FINDINGS: The visualized lung bases are clear. The liver shows normal enhancement with a prominent papillary process of caudate lobe (normal anatomical variant). No focal liver lesions are seen. There is no intra or extrahepatic biliary ductal dilatation. Hepatic vasculature is patent. The gallbladder is unremarkable. The spleen and adrenal glands are unremarkable. The pancreas appears bulky with mild peripancreatic fat stranding and fluid. No organized or obvious hypoenhancing parenchymal area to suggest necrosis is seen on the present scan. The kidneys are normal in size and enhancement. There is no hydronephrosis or perinephric fat stranding. No renal calculi or renal masses are identified. The ureters are normal in caliber. The bladder is normal in contour. Few enlarged periportal and peripancreatic lymph nodes are noted, largest measuring 1.1 cm in short axis diameter (reactive lymphadenopathy). Redundant sigmoid colon is noted. Multiple small uncomplicated colonic diverticulosis Left small fat-containing inguinal hernia is noted. Anterior wedge-shaped compression fracture of L2 vertebral body is seen, with loss of 50% vertebral body height. IMPRESSION: 1. Acute edematous pancreatitis, with modified CT severity index of 4/10 (moderate pancreatitis).- peripancreatic fat stranding is increased. 2. Reactive lymphadenopathy.-stable. 3. Uncomplicated colonic diverticulosis.-stable. 4. Anterior wedge-shaped compression fracture of L2 vertebral body, with loss of 50% vertebral body height.-stable. Electronically signed by Shawn Austin 07-31-2024 07:28 AM
--- NOTE | 2024-07-31 08:03 | History & Physical Report ---
Date of Service July 31, 2024 Assessment & Plan (1) Pancreatitis: Plan: acute pancreatitis clinically & radiographically. etiology - biliary induced (has known sludge in GB) vs etoh vs other. doubt etoh - 2 beers 48 hours prior to the event should not have induced an episode this significant. no h/o elevated calcium levels. no h/o hypertriglyceridemia. no recent addition of new DM meds, etc. no recent viral illness. w/u for autoimmune pancreatitis during 05/25 admission was negative. in light of fatty food consumption last 3 days my main suspicion would be gall bladder sludge induced pancreatitis. with that said there is no evidence of acute cholecystitis or choledocholithiasis on his imaging. 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 (2) Sludge in gallbladder: Plan: as seen on EUS done by Dr Conrad, [facility], at [facility] on 06/29/24 this is the most likely cause of his current acute pancreatitis (rather than e toribio - only 2 beers in the last week) (3) Sleep apnea: Plan: patient on CPAP at home family to bring his home CPAP unit in for use during sleep (4) Allergy-induced asthma: Plan: no flare at this time cont advair BID cont albuterol PRN (5) Dyslipidemia: Plan: statin on hold previous lipid profile showed triglyceride level of <125 numerous other triglyceride levels have been wnl highest 180s typically triglycerides have to be ~400 or higher to induce pancreatitis (6) Impaired fasting glucose: Plan: hemoglobin a1c 6.2% in 06/2024 patient will be NPO - may actually need glucose added to fluids while NPO check BSGs q6h (7) DVT prophylaxis: Plan: lovenox 40mg daily History of Present Illness Chief Complaint: abdominal pain Primary Care Provider: Eric Muller, DO Very pleasant 64yo male with history of acute pancreatitis in 05/2024, pre- diabetes, asthma, and hyperlipidemia who presents with the acute onset of central abdominal pain beginning about 0100 this morning. Patient stated he has been in his usual state of health - has felt well without any recent illnesses - and went to bed last pm in normal fashion. About 0 he was awoken by the abdominal pain. Pain radiated to the low back. He went and had a normal bowel movement about this time but the pain did not jamin. He had nausea without any vomiting. The pain increased & intensified over the next several hours. He states the pain was very similar to his pancreatitis pain in May 2024 and, given how severe the pain was, he presented to the ER for evaluation early this am. He received IV morphine for the pain with good relief. CT abd/pelvis with acute pancreatitis with a normal-appearing gall bladder. He reports he drinks about 1 beer each week. However, he had 2 beers while out to eat with his family on Friday. He had a hamburger with his beer. Despite such he had NO abdominal symptoms following his outing on Friday. He has had NO beer or alcohol since Friday. Last pm for dinner he had a chicken/rice meal from a local food truck [place]. Denies any recent infections. Denies any addition of new diabetic medicines. Allergies Allergy/AdvReac Type Severity Reaction Status Date / Time latex Allergy Intermediate Rash Verified 06/23/24 15:28 Sulfa (Sulfonamide Allergy Intermediate Rash Verified 06/23/24 15:28 Antibiotics) Home Medications Medication Instructions Recorded Confirmed Type ascorbic acid (vitamin C) 1,000 mg 1 g PO DAILY 01/18/20 07/31/24 History tablet (Vitamin C) cholecalciferol (vitamin D3) 125 5,000 unit PO DAILY 06/19/20 07/31/24 History mcg (5,000 unit) tablet (Vitamin D3) Kristy Murcia 1 dose PO UD PRN Pain 02/09/21 07/31/24 History fluticasone propionate 50 2 spray intranasal DAILY PRN Nasal 05/10/21 07/31/24 History mcg/actuation nasal Congestion spray,suspension (Flonase Allergy Relief) albuterol sulfate 90 mcg/actuation 2 puff inhalation Q6H PRN 10/31/21 07/31/24 Rx aerosol inhaler (Ventolin HFA) Shortness Of Breath Or Wheezing #18 grams fluticasone propionate 115 2 puff inhalation BID #12 grams 02/07/23 07/31/24 Rx mcg-salmeterol 21 mcg/actuation HFA inhaler (Advair HFA) clobetasol 0.05 % topical cream 1 applic topical BID PRN eczema 08/06/23 07/31/24 Rx #15 grams bupropion HCl 300 mg 24 hr tablet, 450 mg PO QAM 05/05/24 07/31/24 History extended release rosuvastatin 10 mg tablet (Crestor) 10 mg PO UD 05/11/24 07/31/24 History famotidine 20 mg tablet 40 mg (2 x 20 mg) PO DAILY #60 tabs 05/13/24 07/31/24 Rx Past Med/Surg History Problem List (Updated 07/31/24 @ 08:57 by Lincoln Smith MD) DVT prophylaxis Sludge in gallbladder Pancreatitis Hypogammaglobulinemia Abnormal laboratory test result Recurrent infections Musculoskeletal chest pain Exertional dyspnea Impaired fasting glucose Allergic rhinitis Obesity (BMI 30-39.9) Family history of coronary artery disease Bifascicular block Dyslipidemia Multiple drug allergies Allergic reaction to sulfonamide Depression Allergy-induced asthma Stable; uses rescue inhaler maybe once per year Medical marijuana use Chronic back pain Sleep apnea CPAP Medical History (Updated 07/31/24 @ 08:57 by Lincoln Smith MD) Acute pancreatitis 05/2024 History of COVID-19 10/2021- no hosp; resolved Obesity Eczema Hearing deficit B/L hearing aids Surgical History Hx of spinal surgery History of open reduction and internal fixation (ORIF) procedure Broken toe (hardware since removed) Hx of vasectomy History of colonoscopy with polypectomy 01/2020 Repeat 3 years History of wisdom tooth extraction Hx of appendectomy Family History Mother Colon cancer Diabetes COPD (chronic obstructive pulmonary disease) Asthma Lung disease Father Stroke Brother Cardiac disorder Myocardial infarction Other Cancer No family history of adverse response to anesthesia Denies family history of Lung cancer Social History (Updated 07/31/24 @ 08:55 by Lincoln Smith MD) Smoking Status: Never smoker Second Hand Exposure: No; Do You Dip or Chew Tobacco: No; Hx Alcohol Use: Yes Alcohol type: beer Alcohol Intake Frequency: 2-3 x/Week Hx Substance Use: Yes Prescribed Medications: Marijuana Last Used Substance: Unknown Last Used Substance Other:: months ago Substance Use Type Other:: pt has medical marijuana card. 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 How many Children do You have: 3 Feels Safe at Home: Yes Safety Concerns: Feels Safe At This Time Childhood Exposure to Second-Hand Smoke: Yes Diet: regular caffeine: Yes Dental Care, Regularly: Yes Physical Activity Frequency: Does not Exercise Seatbelt Use: always Sunscreen Use: Yes Do you think of yourself as: straight/heterosexual Assistive Devices: Hearing Aid - Bilateral Review of Systems Review of Systems: gen - no fevers or chills; normal appetite recently; no weight change HENT - no URI symptoms CV - no chest pain, no orthopnea pulm - no dyspnea or cough GI - mild nausea, mod-severe mid-epigastric & central abd pain, no vomiting, no diarrhea, no blood per rectum - no dysuria musculo - no arthralgias skin - no rash neuro - no headache, no paresthesias for focal weakness endo - pre-diabetes only Physical Exam Physical Exam: gen - WD, WN; mildly uncomfortable appearing; awake, alert; pleasant eyes - PERRL HENT - mouth - MMM neck - no JVD, no thyroidmegaly heart - RRR, s1 s2, no murmur lungs - CTA b/l, no rales abd - soft, tender epigastric region/central abdomen, no HSM, no peritoneal signs ext - no edema, pulses of feet 2+ b/l neuro - strength 5/5 x 4 exts; DTRs 2+ b/l upper and lower exts skin - no rash, no jaundice psych - a/o x 3 Results & Data Results & Data Vital Signs (Past 12 Hours) Vital Signs Temp Pulse Pulse Resp BP BP Pulse Ox 07/31/24 06:57 69 18 150/99 H 98 07/31/24 05:13 57 L 07/31/24 04:45 95 07/31/24 04:12 36.6 C 73 18 154/82 H 96 O2 Del Method 07/31/24 06:57 Room Air 07/31/24 05:13 07/31/24 04:45 Room Air 07/31/24 04:12 Room Air Laboratory Results Laboratory Results - last 24 hr 07/31/24 04:54 WBC 10.30 RBC 5.08 Hgb 14.6 Hct 42.4 MCV 83.5 MCH 28.7 MCHC 34.4 RDW Std Deviation 40.9 RDW Coeff of Tory 13.3 Plt Count 232 MPV 11.3 Immature Gran % (Auto) 0.2 Neut % (Auto) 62.9 Lymph % (Auto) 27.0 Meigs % (Auto) 7.1 Eos % (Auto) 2.5 Baso % (Auto) 0.3 Neut # (Auto) 6.48 Lymph # (Auto) 2.78 Meigs # (Auto) 0.73 H Eos # (Auto) 0.26 Baso # (Auto) 0.03 Immature Gran # (Auto) 0.02 PT 10.6 INR 1.0 Sodium 136 Potassium 4.4 Chloride 106 Carbon Dioxide 24 Anion Gap 6 BUN 19 Creatinine 1.10 Est Cr Clr Drug Dosing Not Reportable eGFR 74.50 BUN/Creatinine Ratio 17.3 Glucose 151 H Calcium 9.5 Total Bilirubin 0.4 AST 28 ALT 36 Alkaline Phosphatase 79 Troponin I High Sens < 2.3 Total Protein 7.0 Albumin 4.5 Globulin 2.5 Albumin/Globulin Ratio 1.8 Lipase 3758 H Urine Color Yellow Urine Appearance Clear Urine pH 5.5 Ur Specific [place] 1.021 Urine Protein Negative Urine Glucose (UA) Negative Urine Ketones Negative Urine Blood Negative Urine Nitrite Negative Urine Bilirubin Negative Urine Urobilinogen Negative Ur Leukocyte Esterase Negative Diagnostic Findings Abdomen/Pelvis CT 07/31/24 04:30 EXAM: CT abd pelvis IV con only CLINICAL HISTORY: Abdominal pain, h/o pancreatitis and GB sludge TECHNIQUE: Contiguous axial images were obtained from the level of the diaphragm to the pubic symphysis with intravenous contrast. Coronal and sagittal reconstructions were likewise performed and indicated to increase the sensitivity for detecting clinically relevant pathology. If IV contrast material had not been administered, the likelihood of detecting abnormalities relevant to the patient's condition would have been substantially decreased. CT scan was performed according to ALARA (as low as reasonable achievable). COMPARISON: 11 May 2024 FINDINGS: The visualized lung bases are clear. The liver shows normal enhancement with a prominent papillary process of caudate lobe (normal anatomical variant). No focal liver lesions are seen. There is no intra or extrahepatic biliary ductal dilatation. Hepatic vasculature is patent. The gallbladder is unremarkable. The spleen and adrenal glands are unremarkable. The pancreas appears bulky with mild peripancreatic fat stranding and fluid. No organized or obvious hypoenhancing parenchymal area to suggest necrosis is seen on the present scan. The kidneys are normal in size and enhancement. There is no hydronephrosis or perinephric fat stranding. No renal calculi or renal masses are identified. The ureters are normal in caliber. The bladder is normal in contour. Few enlarged periportal and peripancreatic lymph nodes are noted, largest measuring 1.1 cm in short axis diameter (reactive lymphadenopathy). Redundant sigmoid colon is noted. Multiple small uncomplicated colonic diverticulosis Left small fat-containing inguinal hernia is noted. Anterior wedge-shaped compression fracture of L2 vertebral body is seen, with loss of 50% vertebral body height. IMPRESSION: 1. Acute edematous pancreatitis, with modified CT severity index of 4/10 (moderate pancreatitis).- peripancreatic fat stranding is increased. 2. Reactive lymphadenopathy.-stable. 3. Uncomplicated colonic diverticulosis.-stable. 4. Anterior wedge-shaped compression fracture of L2 vertebral body, with loss of 50% vertebral body height.-stable. Electronically signed by Shawn Austin 07-31-2024 07:28 AM Chest X-Ray 07/31/24 04:30 EXAM: XR chest 1V portable CLINICAL HISTORY: Abdominal pain TECHNIQUE: X-ray images of the chest were obtained in frontal projection. COMPARISON: 05/10/2021 FINDINGS: Pulmonary Parenchyma: Lungs are clear bilaterally. No evidence of consolidation, collapse, or focal opacities. No pulmonary nodules identified. No evidence of pleural effusion or pleural thickening. Heart and Mediastinum: Heart size and shape are normal. No mediastinal widening or masses. No hilar or mediastinal lymphadenopathy. Bony Thorax: Bony thorax appears intact without fractures or deformities. Soft Tissues: Soft tissues overlying the chest wall are unremarkable. IMPRESSION: 1. Normal chest X-ray. No acute cardiopulmonary abnormalities identified. 2. No interval changes. Electronically signed by Dennis Gee 07-31-2024 06:57 AM Code Status & VTE Plan Code Status full code PG Care Time/CCT Total # of Minutes Spent Total Time Spent with Patient: Total time spent is greater than 50% in coordination of care (as documented) at patient's floor/unit and/or counseling patient: Coding Level of Care Code 36509 INT INP/OBS CARE MIN Diagnoses Pancreatitis K85.90 Sludge in gallbladder K82.8 Sleep apnea G47.30 Allergy-induced asthma J45.909 Dyslipidemia E78.5 Impaired fasting glucose R73.01 DVT prophylaxis Z29.9
[2024-07-31] MEDS ORDERED: ONDANSETRON INJ 2 MG/ML 2 ML VIAL IV PRN (10:33)
[2024-07-31] MEDS ORDERED: ALBUTEROL HFA 8 GM INHALER INH PRN (10:33)
[2024-07-31] MEDS: LACTATED RINGER'S 1,000 ML IV SCH (10:39)
[2024-07-31] MEDS: MoRPHine SULFATE 2 MG/ML CARP IV PRN ×2 (11:55→14:54)
[2024-07-31] MEDS: FAMOTIDINE 20MG IV PUSH 20 MG/5 ML SYR IV SCH (11:56)
[2024-07-31] MEDS: FLUTICASONE/VILANTEROL 200/25MCG 14 PUFFS/INHALER INH SCH (12:09)
[2024-07-31] MEDS: buPROPion XL 150 MG TABCR PO SCH (12:09)
[2024-07-31] MEDS: FLUTICASONE PROPIONATE NA SPR 16 GM BTL PRN (14:53)
[2024-07-31] MEDS: KETOROLAC 30 MG/ML VIAL IV ONE (14:54)
[2024-07-31] MEDS: D5W AND LACTATED RINGERS 1,000 ML IV SCH (20:43)
[2024-08-01 06:27] LABS: BUN Creatinine Ratio 17.8 (10-20); Calcium 8.6 mg/dl (8.6-10.3); Creatinine Clr Calc Pharmacy 88.6 ml/min; Potassium 4.3 mmol/L (3.5-5.1)
[2024-08-01 06:44] LABS: Albumin Globulin Ratio 1.5 (0.9-2); Albumin Level 3.7 gm/dl (3.4-5.0); Bilirubin,Total 0.7 mg/dl (0.2-1.0); Globulin 2.4 gm/dl (2.5-4.0); Magnesium 1.8 mg/dl (1.7-2.4); Total Protein 6.1 gm/dl (6.0-8.3)
[2024-08-01] MEDS: ENOXAPARIN INJ 40 MG/0.4 ML SYR SQ SCH (07:57)
[2024-08-01] MEDS ORDERED: ENOXAPARIN INJ 40 MG/0.4 ML SYR SQ SCH (09:00)
--- NOTE | 2024-08-01 12:00 | Hospitalist Progress Note ---
Date of Service August 01, 2024 Assessment & Plan (1) Pancreatitis: Plan: acute pancreatitis clinically & radiographically. etiology - biliary induced (has known sludge in GB) vs etoh vs other. doubt etoh - 2 beers ~48 hours prior to the event should not have induced an episode this significant. no h/o elevated calcium levels. no h/o hypertriglyceridemia. no recent addition of new DM meds, etc. no recent viral illness. w/u for autoimmune pancreatitis during 05/25 admission was negative. in light of fatty food consumption last 3 days prior to admission my main suspicion would be gall bladder sludge induced pancreatitis. with that said there is no evidence of acute cholecystitis or choledocholithiasis on his imaging. pain improved today. lipase down significantly from high of 3758 to 1062 this am. he may have a mild ileus as he reports no passage of stool/flatus since admission. plan - * tolerated sips/chips this am; allow clear liquid tray * cont LR but lower fluid rate to 100cc/hr * pain meds prn * anti-emetics prn * serial labs including lipase again in am * consider gen surg consult while here - elective lap valerio late in the stay or shortly after d/c given this is 2nd episode of pancreatitis in 3 months? (2) Sludge in gallbladder: Plan: as seen on EUS done by Alex Boswell, at [facility] on 06/29/24 this is the most likely cause of his current acute pancreatitis (rather than etoh - only 2 beers in the last week) (3) Sleep apnea: Plan: patient on CPAP at home family brought his home CPAP unit in for use during sleep (4) Allergy-induced asthma: Plan: no flare at this time cont advair BID cont albuterol PRN (5) Dyslipidemia: Plan: statin on hold previous lipid profile showed triglyceride level of <125 numerous other triglyceride levels have been wnl highest 180s typically triglycerides have to be ~400 or higher to induce pancreatitis (6) Impaired fasting glucose: Plan: hemoglobin a1c 6.2% in 06/2024 cont BSG checks ac/hs (7) DVT prophylaxis: Plan: lovenox 40mg daily Plan progressing updated at bedside Admission and Anticipated Discharge Date Admission Date: July 31, 2024 Subjective abdominal pain modestly-mildly improved this am no nausea or emesis not passing flatus or stool no fevers allowed ice chips this am - did not make his pain worse no new complaints Review of Systems Review of Systems: gen - no fevers cv - no chest pain pulm - no dyspnea Physical Exam Physical Exam: gen - looks more comfortable today; NAD; awake/alert mouth - MMM neck - no JVD heart - RRR, s1 s2, no murmur lungs - CTA b/l, no rales; mildly decreased BS bases abd - mildly distended; BS+; NT; no HSM; no peritoneal signs ext - no edema, pulses of feet 2+ b/l psych - a/o x 3 Results & Data Results & Data Vital Signs (Past 12 Hours) Vital Signs Temp Pulse Resp BP Pulse Ox O2 Del Method 08/01/24 07:50 36.9 C 76 16 120/73 95 Room Air Laboratory Results Laboratory Results - last 24 hr 07/31/24 07/31/24 08/01/24 18:03 23:20 05:26 Sodium Potassium Chloride Carbon Dioxide Anion Gap BUN Creatinine Est Cr Clr Drug Dosing eGFR BUN/Creatinine Ratio Glucose POC Glucose 84 148 H 174 H Calcium Magnesium Total Bilirubin AST ALT Alkaline Phosphatase Total Protein Albumin Globulin Albumin/Globulin Ratio Lipase 08/01/24 08/01/24 05:39 11:48 Sodium 137 Potassium 4.3 Chloride 107 Carbon Dioxide 27 Anion Gap 3 BUN 19 Creatinine 1.07 Est Cr Clr Drug Dosing 88.6 eGFR 77.01 BUN/Creatinine Ratio 17.8 Glucose 150 H POC Glucose 116 H Calcium 8.6 Magnesium 1.8 Total Bilirubin 0.7 AST 16 ALT 24 Alkaline Phosphatase 52 Total Protein 6.1 Albumin 3.7 Globulin 2.4 L Albumin/Globulin Ratio 1.5 Lipase 1062 H PG Care Time/CCT Total # of Minutes Spent Total Time Spent with Patient: Total time spent is greater than 50% in coordination of care (as documented) at patient's floor/unit and/or counseling patient: Coding Level of Care Code 51996 SUB INP/OBS CARE 2/35MIN Diagnoses Pancreatitis K85.90 Sludge in gallbladder K82.8 Sleep apnea G47.30 Allergy-induced asthma J45.909 Dyslipidemia E78.5 Impaired fasting glucose R73.01 DVT prophylaxis Z29.9
[2024-08-02 06:36] LABS: BUN Creatinine Ratio 13.7 (10-20); Calcium 8.5 mg/dl (8.6-10.3)
--- NOTE | 2024-08-02 13:16 | Surgery Consultation ---
Date of Consultation August 02, 2024 Assessment & Plan (1) Sludge in gallbladder: This is a 64yM with a PMH of depression, chronic back pain, HLD, who presents to the [facility] ED on 07/31/24 with complaints of abdominal pain that started friday morning. Workup in the ER included a CT a/p that showed concern for panc reatitis. No gallstones noted in gallbladder. Lipase >3000. Of significance the patient had an episode of pancreatitis back in may. Imaging did not reveal any gallstones at the time of his admission. He did eventually undergo an EUS with Dr. Newby on 06/29 as an outpatient revealing moderate sludge with recommendations for consideration for cholecystectomy as an outpatient. Patient states that since his admission in may he was following a low fat diet. As patient has been feeling better he has been adding more fatty foods into his diet, such as eating a hamburger/fries last friday. He really cut back his alcohol intake since may as well and recently re-introduced it, at a responsible level, having 1 beer a week over the last 3 weeks. He did drink 2 beers during his family outing last friday during dinner, but nothing since then. Today the pt is feeling much better than admission. He is currently upping his diet to fulls for lunch. Today patient's vital signs are stable. His lab work shows a downtrending lipase of 152 from 1062 and 3758 the day prior. Yesterdays LFTs show Tb 0.7, AST 16. ALT 24, alkp 52. WBC normal on admission at 10. On exam patients abdomen is soft, no discomfort to palpation elicited in the ruq/epigastric regions. He has some mild discomfort across his bilateral lower abdomen. Given recurring episodes of pancreatitis in short order, likely related to gallbladder sludge as alcohol intake has been minimal, triglycerides (106 in 05/25), EUS without any other overt findings, we will recommend patient have his gallbladder removed. This could be performed inpt vs outpatient. Since we have availability tomorrow we will place him on the schedule for robotic cholecystectomy with Dr. Huang. We will obtain a repeat RUQ US for further review in the meantime. Please keep NPO at midnight. (2) Pancreatitis: Supervising Physician Co-Signing Physician Notes d/w ALEJANDRA, agree w/ above. Admitted with recurrent pancreatitis. Biliary sludge on EUS, presumed biliary source though did have 2 beers prior to recent episode. Plan for cholecystectomy tomorrow. History of Present Illness Attending Physician: Lincoln Smith MD History of Present Illness This is a 64yM with a PMH of depression, chronic back pain, HLD, who presents to the [facility] ED on 07/31/24 with complaints of abdominal pain. Patient states it woke him up from his sleep friday am. He shows me the pain was mostly across the lower abdomen radiating into his lower back. It was associated with nausea, no vomiting. Prior to this he ate a chicken and rice meal from a [employer] food truck downw. Because his symptoms were not improving he came into the ER for further evaluation. He underwent a CT a/p that showed concern for pancreatitis. No gallstones noted in gallbladder. Of significance the patient had an episode of pancreatitis back in may. Imaging did not reveal any gallstones at the time of his admission. He eventually did undergo an EUS with Dr. Newby on 06/29 as an outpatient revealing moderate sludge with recommendations for consideration for cholecystectomy as an outpatient. Patient states that since his admission in may he was really following a low fat diet and even lost 20lbs during this time. As patient has been feeling better he has been adding more fatty foods into his diet, such as eating a hamburger/fries last friday. He really cut back his alcohol intake since may as well and recently re- introduced it, at a responsible level, having 1 beer a week over the last 3 weeks. He did drink 2 beers during his family outing last friday during dinner, but nothing since then. The patient reports a history of some intermittent heart burn symptoms in the past, but has been taking pepcid with relief. Outside of this episode he has no issues in the past related to fatty/greasy/spicy foods. He denies any upper abdominal pain today. No further nausea since friday. No vomiting. No CP/SOB, jaundice, change in stool/urine c olor/character. He has history of appendectomy. He is passing some flatus and small amount of stool today. He feels much better than admission. Allergies Allergy/AdvReac Type Severity Reaction Status Date / Time latex Allergy Intermediate Rash Verified 06/23/24 15:28 Sulfa (Sulfonamide Allergy Intermediate Rash Verified 06/23/24 15:28 Antibiotics) Home Medications Medication Instructions Recorded Confirmed Type ascorbic acid (vitamin C) 1,000 mg 1 g PO DAILY 01/18/20 07/31/24 History tablet (Vitamin C) cholecalciferol (vitamin D3) 125 5,000 unit PO DAILY 06/19/20 07/31/24 History mcg (5,000 unit) tablet (Vitamin D3) Medical Marijauna 1 dose PO UD PRN Pain 02/09/21 07/31/24 History fluticasone propionate 50 2 spray intranasal DAILY PRN Nasal 05/10/21 07/31/24 History mcg/actuation nasal Congestion spray,suspension (Flonase Allergy Relief) albuterol sulfate 90 mcg/actuation 2 puff inhalation Q6H PRN 10/31/21 07/31/24 Rx aerosol inhaler (Ventolin HFA) Shortness Of Breath Or Wheezing #18 grams fluticasone propionate 115 2 puff inhalation BID #12 grams 02/07/23 07/31/24 Rx mcg-salmeterol 21 mcg/actuation HFA inhaler (Advair HFA) clobetasol 0.05 % topical cream 1 applic topical BID PRN eczema 08/06/23 07/31/24 Rx #15 grams bupropion HCl 300 mg 24 hr tablet, 450 mg PO QAM 05/05/24 07/31/24 History extended release rosuvastatin 10 mg tablet (Crestor) 10 mg PO UD 05/11/24 07/31/24 History famotidine 20 mg tablet 40 mg (2 x 20 mg) PO DAILY #60 tabs 05/13/24 07/31/24 Rx Patient History Medical History Acute pancreatitis 05/2024 History of COVID-19 10/2021- no hosp; resolved Obesity Eczema Hearing deficit B/L hearing aids Surgical History Hx of spinal surgery History of open reduction and internal fixation (ORIF) procedure Broken toe (hardware since removed) Hx of vasectomy History of colonoscopy with polypectomy 01/2020 Repeat 3 years History of wisdom tooth extraction Hx of appendectomy Family History Mother Colon cancer Diabetes COPD (chronic obstructive pulmonary disease) Asthma Lung disease Father Stroke Brother Cardiac disorder Myocardial infarction Other Cancer No family history of adverse response to anesthesia Denies family history of Lung cancer Social History Smoking Status: Never smoker Second Hand Exposure: No; Do You Dip or Chew Tobacco: No; Hx Alcohol Use: Yes Alcohol type: beer Alcohol Intake Frequency: 2-3 x/Week Hx Substance Use: Yes Prescribed Medications: Marijuana Last Used Substance: Unknown Last Used Substance Other:: months ago Substance Use Type Other:: pt has medical marijuana card. 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 How many Children do You have: 3 Feels Safe at Home: Yes Safety Concerns: Feels Safe At This Time Childhood Exposure to Second-Hand Smoke: Yes Diet: regular caffeine: Yes Dental Care, Regularly: Yes Physical Activity Frequency: Does not Exercise Seatbelt Use: always Sunscreen Use: Yes Do you think of yourself as: straight/heterosexual Assistive Devices: CPAP Review of Systems Constitutional: no fever and no chills Respiratory: no dyspnea Cardiovascular: no chest pain Gastrointestinal: + abdominal pain (across lower abdomen) and + nausea (now resolved); no vomiting and no change in bowel habits Genitourinary: no dysuria or no problem reported Physical Exam Physical Exam: awake/alert no distress Constitutional: well developed and well nourished Respiratory: normal respiratory effort Gastrointestinal (Abdomen): Percussion/Palpation: + abdomen tender (mild discomfort across lower bilateral abdomen; no epigastric/ruq ttp) and abdomen soft Results & Data Vital Signs (Past 12 Hours) Vital Signs Temp Pulse Resp BP Pulse Ox O2 Del Method 08/02/24 12:20 98.6 F 83 15 138/88 96 Room Air 08/02/24 07:50 98.8 F 82 15 146/90 H 95 Room Air Diagnostic Findings EXAM: CT abd pelvis IV con only CLINICAL HISTORY: Abdominal pain, h/o pancreatitis and GB sludge TECHNIQUE: Contiguous axial images were obtained from the level of the diaphragm to the pubic symphysis with intravenous contrast. Coronal and sagittal reconstructions were likewise performed and indicated to increase the sensitivity for detecting clinically relevant pathology. If IV contrast material had not been administered, the likelihood of detecting abnormalities relevant to the patient's condition would have been substantially decreased. CT scan was performed according to ALARA (as low as reasonable achievable). COMPARISON: 11 May 2024 FINDINGS: The visualized lung bases are clear. The liver shows normal enhancement with a prominent papillary process of caudate lobe (normal anatomical variant). No focal liver lesions are seen. There is no intra or extrahepatic biliary ductal dilatation. Hepatic vasculature is patent. The gallbladder is unremarkable. The spleen and adrenal glands are unremarkable. The pancreas appears bulky with mild peripancreatic fat stranding and fluid. No organized or obvious hypoenhancing parenchymal area to suggest necrosis is seen on the present scan. The kidneys are normal in size and enhancement. There is no hydronephrosis or perinephric fat stranding. No renal calculi or renal masses are identified. The ureters are normal in caliber. The bladder is normal in contour. Few enlarged periportal and peripancreatic lymph nodes are noted, largest measuring 1.1 cm in short axis diameter (reactive lymphadenopathy). Redundant sigmoid colon is noted. Multiple small uncomplicated colonic diverticulosis Left small fat-containing inguinal hernia is noted. Anterior wedge-shaped compression fracture of L2 vertebral body is seen, with loss of 50% vertebral body height. IMPRESSION: 1. Acute edematous pancreatitis, with modified CT severity index of 4/10 (moderate pancreatitis).- peripancreatic fat stranding is increased. 2. Reactive lymphadenopathy.-stable. 3. Uncomplicated colonic diverticulosis.-stable. 4. Anterior wedge-shaped compression fracture of L2 vertebral body, with loss of 50% vertebral body height.-stable. Electronically signed by Shawn Austin 07-31-2024 07:28 AM Dictated: 07/31/24 0602 PG Care Time/CCT Total # of Minutes Spent Total Time Spent with Patient: Total time spent is greater than 50% in coordination of care (as documented) at patient's floor/unit and/or counseling patient: Coding Level of Care Code 70098 INT INP/OBS CARE 2/55MIN Diagnoses Sludge in gallbladder K82.8 Pancreatitis K85.90
--- NOTE | 2024-08-02 13:33 | Hospitalist Progress Note ---
Date of Service August 02, 2024 Assessment & Plan (1) Pancreatitis: Plan: IMPROVED. etiology - biliary induced (has known sludge in GB) vs etoh vs other. doubt etoh - 2 beers ~48 hours prior to the event should not have induced an episode this significant. in light of fatty food consumption in the days leading up to admission my main suspicion would be gall bladder sludge induced pancreatitis. with that said there is no evidence of acute cholecystitis or choledoch olithiasis on his imaging. no h/o elevated calcium levels. no h/o hypertriglyceridemia. no recent addition of new DM meds, etc. no recent viral illness. w/u for autoimmune pancreatitis during 05/25 admission was negative. pain markedly improved today. lipase down significantly from high of 3758 to 152 this am. +flatus +small stool this am plan - * advance diet to full liquids * can d/c IV fluids if he continues to drink well * pain meds prn * anti-emetics prn * repeat labs in am Of note - I consulted general surgery to see if he would be candidate for elective lap valerio as this is 2nd episode of pancreatitis in [address] Huang saw in consult and plans lap valerio tomorrow NPO after [place] [facility] surgical team recommended repeat RUQ u/s - r/o CBD dilatation, new biliary issue in comparison to admission CT, etc. from a cardiopulmonary standpoint he is optimized for surgery (2) Sludge in gallbladder: Plan: as seen on EUS done by Dr Conrad, [facility], at [facility] on 06/29/24 this is the most likely cause of his current acute pancreatitis (rather than etoh - only 2 beers in the last week) see #1 re: lap valerio by Dr Huang, [facility] gen surg (3) Sleep apnea: Plan: cont home CPAP at HS (4) Allergy-induced asthma: Plan: no flare at this time cont advair BID cont albuterol PRN (5) Dyslipidemia: Plan: statin on hold previous lipid profile showed triglyceride level of <125 numerous other triglyceride levels have been wnl highest 180s typically triglycerides have to be ~400 or higher to induce pancreatitis (6) Impaired fasting glucose: Plan: hemoglobin a1c 6.2% in 06/2024 BSGs controlled (7) DVT prophylaxis: Plan: hold tomorrow AM's lovenox in preparation for lap valerio tomorrow Plan mood d/o - cont wellbutrin at home dose of 450mg daily updated at bedside yesterday 08/01 appreciate gen surg assistance Admission and Anticipated Discharge Date Admission Date: July 31, 2024 Subjective patient feels much better today abdominal pain is minimal no nausea/emesis passing flatus tiny stool this am tolerating clear liquids no new complaints ambulating Review of Systems Review of Systems: gen - no fevers/chills cv - no chest pain pulm - no dyspnea or NAGEL Physical Exam Physical Exam: gen - looks good today, NAD, pleasant mouth - MMM neck - no JVD heart - RRR, s1 s2, no murmur lungs - CTA b/l, no rales; airation bases improved abd - distension improved; BS+; NONTENDER all locations of abdomen; no HSM; no peritoneal signs ext - no edema, pulses of feet 2+ b/l psych - a/o x 3 skin - no jaundice Results & Data Results & Data Vital Signs (Past 12 Hours) Vital Signs Temp Pulse Resp BP Pulse Ox O2 Del Method 08/02/24 12:20 37.0 C 83 15 138/88 96 Room Air 08/02/24 07:50 37.1 C 82 15 146/90 H 95 Room Air Laboratory Results Laboratory Results - last 24 hr 08/02/24 08/02/24 08/02/24 05:24 07:24 11:17 Sodium 135 L Potassium 4.0 Chloride 103 Carbon Dioxide 27 Anion Gap 5 BUN 14 Creatinine 1.02 Est Cr Clr Drug Dosing 93.0 eGFR 81.56 BUN/Creatinine Ratio 13.7 Glucose 102 H POC Glucose 99 122 H Calcium 8.5 L Lipase 152 H 08/02/24 16:09 Sodium Potassium Chloride Carbon Dioxide Anion Gap BUN Creatinine Est Cr Clr Drug Dosing eGFR BUN/Creatinine Ratio Glucose POC Glucose 89 Calcium Lipase PG Care Time/CCT Total # of Minutes Spent Total Time Spent with Patient: Total time spent is greater than 50% in coordination of care (as documented) at patient's floor/unit and/or counseling patient: Coding Level of Care Code 57828 SUB INP/OBS CARE 2/35MIN Diagnoses Pancreatitis K85.90 Sludge in gallbladder K82.8 Sleep apnea G47.30 Allergy-induced asthma J45.909 Dyslipidemia E78.5 Impaired fasting glucose R73.01 DVT prophylaxis Z29.9
--- NOTE | 2024-08-02 13:50 | Electrocardiogram Report ---
Test Reason : Blood Pressure : */* mmHG Vent. Rate : 57 BPM Atrial Rate : 57 BPM P-R Int : 180 ms QRS Dur : 136 ms QT Int : 452 ms P-R-T Axes : 29 -59 -1 degrees QTcB Int : 439 ms Sinus bradycardia Right bundle branch block Left anterior fascicular block Bifascicular block Abnormal ECG When compared with ECG of 31-Jul-2024 04:39, (unconfirmed) No significant change was found Confirmed by Murali Palomo ([id number]) on 08/02/2024 1:50:17 PM Referred By: REFERRED SELF Confirmed By: Murali Palomo
--- NOTE | 2024-08-02 21:26 | Ultrasound Report ---
EXAM: US liver CLINICAL HISTORY: pancreatitis . TECHNIQUE: Real-time grayscale and Doppler ultrasound imaging of the right upper quadrant of the abdomen was performed. COMPARISON: 07/31/2024 FINDINGS: Liver: Liver is mildly enlarged in size and shows increased portal triads echogenicity, measuring 19.5 cm. No focal lesions, cysts, or masses were identified. No intrahepatic bile duct dilatation. Normal flow in the main portal vein. Gallbladder and Biliary System: Gallbladder is visualized with normal wall thickness, measures 0.23 cm. It shows internal sludge. No gallstones were identified. Common bile duct: CBD with normal diameter(0.4 cm), with no dilatation. Pancreas: The pancreas is obscured by bowel gases. Right kidney: Right kidney: 10.2 cm in length, normal in size, shape, echotexture No hydronephrosis, calculi, or masses were identified. Renal parenchymal echogenicity is normal. Cortical thickness: Normal Other Findings: No free fluid in the scanned abdomen. IMPRESSION: Mild hepatomegaly with increased portal triads echogenicity, suggesting acute hepatitis, correlation with LFTs is recommended. Sludge in the gall bladder. The pancreas is obscured by bowel gases. Clinical correlation is recommended for further evaluation. Electronically signed by Dennis Gee 08-02-2024 9:26 PM
[2024-08-03 06:37] LABS: Albumin Globulin Ratio 1.5 (0.9-2); Albumin Level 3.9 gm/dl (3.4-5.0); BUN Creatinine Ratio 12.5 (10-20); Bilirubin,Total 0.8 mg/dl (0.2-1.0); Calcium 9.1 mg/dl (8.6-10.3); Creatinine Clr Calc Pharmacy 91.2 ml/min; Globulin 2.6 gm/dl (2.5-4.0); Potassium 3.8 mmol/L (3.5-5.1); Total Protein 6.5 gm/dl (6.0-8.3)
--- NOTE | 2024-08-03 07:27 | Hospitalist Progress Note ---
Date of Service August 03, 2024 Assessment & Plan (1) Pancreatitis: Plan: IMPROVED. etiology - biliary induced (has known sludge in GB) vs etoh vs other. doubt etoh - 2 beers ~48 hours prior to the event should not have induced an episode this significant however did have fatty food consumption days leading up to admission and suspicion would be gallbladder sludge induced pancreatitis despite no evidence for acute valerio/choledocholithiasis on imaging. No elevated calcium or TRG, no recent DM medications or viral illness. Work-up for autoimmune pancreatitis 05/25 was negative Provided pain control, IVF and NPO w/ advancement to full liquids and IVF discontinued as tolerated full liquids General surgery, Dr Huang, consulted to see about elective lap valerio given 2nd episode in 3 months. Did obtain liver US which noted ?hepatitis. Noted sludge however as well 08/03 NPO this morning for lap valerio IVF added while NPO and Lovenox SQ on hold LFTs wnl, lipase down to 46 s/p robotic lap valerio w/ Dr Huang 08/03. EBL 5cc. Per OP report, gallbladder was distended and was moderately inflamed, which appeared to be both acute and chronic Given dose Ceftriaxone w/ surgery pre-op, per surgery to continue for 24 hrs Liquid diet for now Continue pain control, antiemetics Bowel regimen w/ colace BID, senna HS added (last BM 07/31) Lovenox to remain on hold until tomorrow Monitor labs/exam on repeat. Hopeful dc tomorrow pending status/exam (2) Sludge in gallbladder: Plan: as seen on EUS done by Dr Conrad, [facility], at [facility] on 06/29/24 Most likely cause for current acute pancreatitis rather than etoh however see above, lap valerio for acute on chronic cholecystis per OP report. F/u pathology (3) Sleep apnea: Plan: cont home CPAP at (4) Allergy-induced asthma: Plan: no flare at this time and remains on room air. Continues on advair BID, albuterol prn (5) Dyslipidemia: Plan: statin on hold 2nd to above previous lipid profile showed triglyceride level of <125 numerous other triglyceride levels have been wnl and highest was 180s typically triglycerides have to be ~400 or higher to induce pancreatitis (6) Impaired fasting glucose: Plan: hemoglobin a1c 6.2% in 06/2024 BSGs controlled and likely can stop BSG checks in AM if no issues (7) DVT prophylaxis: Plan: Lovenox SQ ordered but held for valerio as above. Per surgery, hold until 08/04. SCDs have been ordered in meantime/ambulation to be encouraged Plan Other chronic issues: Mood d/o - cont Wellbutrin at home dose of 450mg daily Dispo: continued inpatient stay, liquid diet/bowel regimen and pain/antiemetics as needed and hopefully able to advance diet and dc on PO pain control but will monitor exam/labs. updated at bedside 08/03 Admission and Anticipated Discharge Date Admission Date: July 31, 2024 Supervising Physician Co-Signing Physician Notes The patient was not seen by me. The chart was reviewed. Case discussed with INGRIS Berg. Agree with assessment and plan Subjective Attempted to see this morning but already taken down for OR and will re-visit once back from his valerio with Dr Huang. Seen this afternoon post-op, Vanessa at bedside. Pain to back/incisions, meds ordered. Passing gas, no significant BM/monitoring. Last BM 07/31 but reports hasn't eaten much. On liquid diet/tolerating, IVF discontinued. Possible advancement of diet in AM and dc. Discussed w/ surgery, hold lovenox til tomorrow and rec for abx x 24hr until dc hopefully tomororw. Questions/concerns addressed at this time. Physical Exam 2 Physical Exam: General: 64yo male sitting up in bed post-op, reports pain to abdomen much improved (having some pain to his back), NAD, no jaundice in room HEENT: head atraumatic, normocephalic, mm slightly dry, trachea midline Resp: even/unlabored, on room air, no cough/tachypnea CV: RRR, no significant m/r/g, no pitting edema GI: +BS, +distension but no overt tenderness/guarding, lap sites look good without drainage/erythema and no drain present no sims MSK/Neuro: nonfocal, not confused, answering questions appropriately Psych: AOx3, cooperative with exam Results & Data Results & Data Vital Signs (Past 12 Hours) Vital Signs Temp Pulse Resp BP Pulse Ox O2 Del Method 08/03/24 07:25 37.1 C 76 16 131/88 95 Room Air 08/02/24 20:00 CPAP Laboratory Results 07/31/24 04:54 08/03/24 05:34 LFTs wnl Lipase 46 Diagnostic Findings Liver Ultrasound 08/02/24 13:16 EXAM: US liver CLINICAL HISTORY: pancreatitis . TECHNIQUE: Real-time grayscale and Doppler ultrasound imaging of the right upper quadrant of the abdomen was performed. COMPARISON: 07/31/2024 FINDINGS: Liver: Liver is mildly enlarged in size and shows increased portal triads echogenicity, measuring 19.5 cm. No focal lesions, cysts, or masses were identified. No intrahepatic bile duct dilatation. Normal flow in the main portal vein. Gallbladder and Biliary System: Gallbladder is visualized with normal wall thickness, measures 0.23 cm. It shows internal sludge. No gallstones were identified. Common bile duct: CBD with normal diameter(0.4 cm), with no dilatation. Pancreas: The pancreas is obscured by bowel gases. Right kidney: Right kidney: 10.2 cm in length, normal in size, shape, echotexture No hydronephrosis, calculi, or masses were identified. Renal parenchymal echogenicity is normal. Cortical thickness: Normal Other Findings: No free fluid in the scanned abdomen. IMPRESSION: Mild hepatomegaly with increased portal triads echogenicity, suggesting acute hepatitis, correlation with LFTs is recommended. Sludge in the gall bladder. The pancreas is obscured by bowel gases. Clinical correlation is recommended for further evaluation. Electronically signed by Dennis Gee 08-02-2024 9:26 PM PG Care Time/CCT Total # of Minutes Spent Total Time Spent with Patient: Total time spent is greater than 50% in coordination of care (as documented) at patient's floor/unit and/or counseling patient: Coding Level of Care Code 41765 SUB INP/OBS CARE 3/50MIN Diagnoses Pancreatitis K85.90 Sludge in gallbladder K82.8 Sleep apnea G47.30 Allergy-induced asthma J45.909 Dyslipidemia E78.5 Impaired fasting glucose R73.01 DVT prophylaxis Z29.9
[2024-08-03] MEDS: LACTATED RINGER'S 1,000 ML IV SCH (07:58)
[2024-08-03 09:58] LABS: Hep B Surface Ag with confirm Negative (Negative)
[2024-08-03 10:03] LABS: Hep C Ab Rflx HepCQuant RNA Negative (Negative)
[2024-08-03] MEDS: INDOCYANINE GREEN 25 MG VIAL INJ ONE (10:20)
--- NOTE | 2024-08-03 10:38 | Surgery Progress Note ---
Date of Service August 03, 2024 Assessment & Plan (1) Sludge in gallbladder: Plan: Recurrent pancreatitis, believed to be from biliary source due to microlithiasis and biliary sludge. He understands that cholecystectomy may not prevent future episodes of this is not the etiology of his pancreatitis plan for robotic assisted laparoscopic cholecystectomy with possible cholangiogram risks discussed to include but not limited to bleeding, infection, retained sto ne, bile leak, open surgery, damage to surrounding structures including bile duct, need for future or more extensive surgery, failure to treat symptoms, and risks of anesthesia. Likely discharge tomorrow (2) Pancreatitis: Admission and Anticipated Discharge Date Admission Date: July 31, 2024 Subjective Admitted with recurrent pancreatitis, outside endoscopic ultrasound showed sludge and possible microlithiasis. Believed to be a biliary source. Symptoms improved. Prior open appendectomy as a child, otherwise no abdominal surgeries. Physical Exam Constitutional: WD/WN, vitals as above + obese Respiratory: normal respiratory effort, lungs clear to auscultation Cardiovascular: RRR, no murmur, no edema Gastrointestinal (Abdomen): normal bowel sounds, soft, nontender, no hepatosplenomegaly Results & Data Vital Signs (Past 12 Hours) Vital Signs Temp Pulse Resp BP Pulse Ox O2 Del Method 08/03/24 09:47 37.2 C 79 18 159/89 H 95 Room Air 08/03/24 07:25 37.1 C 76 16 131/88 95 Room Air Laboratory Results Laboratory Results - last 24 hr 08/02/24 08/02/24 08/02/24 05:27 11:17 16:09 Sodium Potassium Chloride Carbon Dioxide Anion Gap BUN Creatinine Est Cr Clr Drug Dosing eGFR BUN/Creatinine Ratio Glucose POC Glucose 122 H 89 Calcium Total Bilirubin AST ALT Alkaline Phosphatase Total Protein Albumin Globulin Albumin/Globulin Ratio Lipase Hepatitis A IgM Ab Cancelled Hep Bs Antigen Negative Hep B Core IgM Ab Cancelled Hepatitis C Antibody Negative 08/03/24 08/03/24 05:34 05:37 Sodium 138 Potassium 3.8 Chloride 104 Carbon Dioxide 29 Anion Gap 5 BUN 13 Creatinine 1.04 Est Cr Clr Drug Dosing 91.2 eGFR 79.68 BUN/Creatinine Ratio 12.5 Glucose 108 H POC Glucose Calcium 9.1 Total Bilirubin 0.8 AST 15 ALT 19 Alkaline Phosphatase 60 Total Protein 6.5 Albumin 3.9 Globulin 2.6 Albumin/Globulin Ratio 1.5 Lipase 46 Hepatitis A IgM Ab Pending Hep Bs Antigen Hep B Core IgM Ab Pending Hepatitis C Antibody Diagnostic Findings Liver Ultrasound 08/02/24 13:16 EXAM: US liver CLINICAL HISTORY: pancreatitis . TECHNIQUE: Real-time grayscale and Doppler ultrasound imaging of the right upper quadrant of the abdomen was performed. COMPARISON: 07/31/2024 FINDINGS: Liver: Liver is mildly enlarged in size and shows increased portal triads echogenicity, measuring 19.5 cm. No focal lesions, cysts, or masses were identified. No intrahepatic bile duct dilatation. Normal flow in the main portal vein. Gallbladder and Biliary System: Gallbladder is visualized with normal wall thickness, measures 0.23 cm. It shows internal sludge. No gallstones were identified. Common bile duct: CBD with normal diameter(0.4 cm), with no dilatation. Pancreas: The pancreas is obscured by bowel gases. Right kidney: Right kidney: 10.2 cm in length, normal in size, shape, echotexture No hydronephrosis, calculi, or masses were identified. Renal parenchymal echogenicity is normal. Cortical thickness: Normal Other Findings: No free fluid in the scanned abdomen. IMPRESSION: Mild hepatomegaly with increased portal triads echogenicity, suggesting acute hepatitis, correlation with LFTs is recommended. Sludge in the gall bladder. The pancreas is obscured by bowel gases. Clinical correlation is recommended for further evaluation. Electronically signed by Dennis Gee 08-02-2024 9:26 PM PG Care Time/CCT Total # of Minutes Spent Total Time Spent with Patient: Total time spent is greater than 50% in coordination of care (as documented) at patient's floor/unit and/or counseling patient: Coding Level of Care Code 28137 SUB INP/OBS CARE 2/35MIN Diagnoses Sludge in gallbladder K82.8 Pancreatitis K85.90
[2024-08-03] MEDS ORDERED: ROCURONIUM BROMIDE 10 MG/ML 5 ML VIAL IV ONE ×2 (10:49→12:28)
[2024-08-03] MEDS ORDERED: PROPOFOL IV EMULSION 10 MG/ML 20 ML VIAL IV ONE (10:49)
[2024-08-03] MEDS ORDERED: LIDOCAINE 2% 2 ML VIAL/AMP(20MG/ML) INFIL ONE (10:49)
[2024-08-03] MEDS ORDERED: MIDAZOLAM HCL 1 MG/ML 2ML VIAL ONE (10:50)
[2024-08-03] MEDS ORDERED: fentaNYL citrate PF 100 MCG/2 ML VIAL ONE ×2 (10:50→12:28)
--- NOTE | 2024-08-03 11:25 | Anesthesiology Consultation ---
Date of Service August 03, 2024 Assessment & Plan Chart Review Chart Review: Acceptable Risk for Surgery Consults Requested none History Surgery Operation Date: 08/03/24 10:45 Proposed Procedures p Robotic Laparoscopic Cholecystectomy - Carlos Huang DO, FACS Height/Weight Height: 5 ft 11 in Weight: 114.7 kg Allergies Allergy/AdvReac Type Severity Reaction Status Date / Time latex Allergy Intermediate Rash Verified 06/23/24 15:28 Sulfa (Sulfonamide Allergy Intermediate Rash Verified 06/23/24 15:28 Antibiotics) Medications Home Medications Medication Instructions Recorded Confirmed Last Taken ascorbic acid (vitamin C) 1,000 mg 1 g PO DAILY 01/18/20 07/31/24 03/30/23 tablet (Vitamin C) cholecalciferol (vitamin D3) 125 5,000 unit PO DAILY 06/19/20 07/31/24 03/30/23 mcg (5,000 unit) tablet (Vitamin D3) Medical Marival 1 dose PO UD PRN Pain 02/09/21 07/31/24 03/29/23 fluticasone propionate 50 2 spray intranasal DAILY PRN Nasal 05/10/21 07/31/24 04/01/23 mcg/actuation nasal Congestion spray,suspension (Flonase Allergy Relief) albuterol sulfate 90 mcg/actuation 2 puff inhalation Q6H PRN 10/31/21 07/31/24 Unknown aerosol inhaler (Ventolin HFA) Shortness Of Breath Or Wheezing #18 grams fluticasone propionate 115 2 puff inhalation BID #12 grams 02/07/23 07/31/24 04/02/23 08:00 mcg-salmeterol 21 mcg/actuation HFA inhaler (Advair HFA) clobetasol 0.05 % topical cream 1 applic topical BID PRN eczema 08/06/23 07/31/24 Unknown #15 grams bupropion HCl 300 mg 24 hr tablet, 450 mg PO QAM 05/05/24 07/31/24 Unknown extended release rosuvastatin 10 mg tablet (Crestor) 10 mg PO UD 05/11/24 07/31/24 Unknown famotidine 20 mg tablet 40 mg (2 x 20 mg) PO DAILY #60 tabs 05/13/24 07/31/24 Unknown Active Medications Generic Name Dose Route Start Last Admin Trade Name Freq PRN Reason Stop Dose Admin Bupropion HCl 450 mg 07/31/24 10:45 08/03/24 09:13 Bupropion Xl 150 Mg Tabcr PO 08/30/24 10:44 450 mg DAILY JASMINA Administration Enoxaparin Sodium 40 mg 08/01/24 09:00 08/02/24 07:33 Enoxaparin Inj 40 Mg/0.4 Ml Syr SQ 08/31/24 08:59 40 mg Q24H JASMINA Administration Fluticasone Propionate 2 sprays 07/31/24 10:33 08/01/24 07:58 Fluticasone Propionate Na Spr 16 Gm Btl NA 08/30/24 10:32 2 sprays DAILY PRN Administration Nasal Congestion Fluticasone/Vilanterol 1 puffs 07/31/24 11:00 08/03/24 09:13 Fluticasone/Vilanterol 200/25mcg 14 Puffs/Inhaler INH 08/30/24 10:59 1 puffs DAILY JASMINA Administration Famotidine 20 mg in 5 mls @ 2.5 mls/min 07/31/24 11:00 08/02/24 22:18 Pepcid 20mg Iv Push IV 08/30/24 10:59 2.5 mls/min Q12H JASMINA Administration Lactated Ringer's 1,000 mls @ 100 mls/hr 08/03/24 07:30 08/03/24 07:58 Lr IV 08/04/24 07:29 100 mls/hr .Q10H JASMINA Administration Morphine Sulfate 4 mg 07/31/24 14:32 08/02/24 04:10 Morphine Sulfate 2 Mg/Ml Carp IV 08/14/24 10:32 4 mg Q3H PRN Administration Pain NPO Date Last Intake of Fluids: 08/03/24 Time Last Intake of Fluids: 09:00 Last Intake of Fluids Comment: sip with med Date Last Intake of Solids: 08/02/24 Time Last Intake of Solids: 23:59 Past Medical History Medical History Acute pancreatitis 05/2024 History of COVID-19 10/2021- no hosp; resolved Obesity Eczema Hearing deficit B/L hearing aids Past Family History Family History Mother Colon cancer Diabetes COPD (chronic obstructive pulmonary disease) Asthma Lung disease Father Stroke Brother Cardiac disorder Myocardial infarction Other Cancer No family history of adverse response to anesthesia Denies family history of Lung cancer Past Surgical History Surgical History Hx of spinal surgery History of open reduction and internal fixation (ORIF) procedure Broken toe (hardware since removed) Hx of vasectomy History of colonoscopy with polypectomy 01/2020 Repeat 3 years History of wisdom tooth extraction Hx of appendectomy Social History Smoking Status: Never smoker Do You Dip or Chew Tobacco: No Hx Alcohol Use: Yes Alcohol type: beer alcohol intake frequency: a few times a week Hx Substance Use: Yes substance use type: marijuana Substance Use Type Other:: pt has medical marijuana card. Last Used Substance: Unknown Last Used Substance Other:: months ago Physical Exam Vital Signs Last Vital Signs Temp 37.2 C 08/03/24 09:47 Pulse 79 08/03/24 09:47 Resp 18 08/03/24 09:47 BP 159/89 H 08/03/24 09:47 Pulse Ox 95 08/03/24 09:47 O2 Del Method Room Air 08/03/24 09:47 Testing Laboratory Results 07/31/24 04:54 08/03/24 05:34 PT 10.6 Seconds (9.0-12.0) 07/31/24 04:54 INR 1.0 (0.9-1.1) 07/31/24 04:54 Urine Color Yellow 07/31/24 04:54 Urine Appearance Clear (Clear) 07/31/24 04:54 Urine pH 5.5 (4.5-7.5) 07/31/24 04:54 Ur Specific [place] 1.021 (1.000-1.030) 07/31/24 04:54 Urine Protein Negative (Negative) 07/31/24 04:54 Urine Glucose (UA) Negative (Negative) 07/31/24 04:54 Urine Ketones Negative (Negative) 07/31/24 04:54 Urine Nitrite Negative (Negative) 07/31/24 04:54 Ur Leukocyte Esterase Negative (Negative) 07/31/24 04:54
[2024-08-03] MEDS ORDERED: ePHEDrine sulfate 50 MG/ML AMP IV PRN (11:26)
[2024-08-03] MEDS ORDERED: HYDROmorphone INJ 2 MG/ML SYR/VIAL IV PRN (11:26)
[2024-08-03] MEDS ORDERED: PROMETHAZINE HCL 6.25 MG in SODIUM CHLORIDE 0.9% 50 ML IV PRN (11:26)
[2024-08-03] MEDS ORDERED: ATROPINE SULFATE 0.1 MG/ML 10ML SYR IV PRN (11:26)
[2024-08-03] MEDS: cefOXitin 2,000 MG in DEXTROSE 5 % MINI-B 50 ML IV STA (11:45)
[2024-08-03] MEDS ORDERED: PHENYLEPHRINE HCL 10 MG/ML VIAL ONE (12:26)
[2024-08-03] MEDS ORDERED: ONDANSETRON INJ 2 MG/ML 2 ML VIAL ONE (12:56)
[2024-08-03] MEDS ORDERED: KETOROLAC 30 MG/ML VIAL ONE (12:58)
[2024-08-03] MEDS ORDERED: SUGAMMADEX SODIUM 200 MG/2 ML VIAL IV ONE (13:01)
--- NOTE | 2024-08-03 13:08 | Operative Report ---
PG Post Operative Report Pre & Post Diagnosis Operation Date: 08/03/24 10:45 Pre-Op Diagnosis: Sludge in Gallbladder Acute Pancreatitis Post-Op Diagnosis: Sludge in Gallbladder Acute Pancreatitis I identified the patient and participated in the time-out.: Yes Procedure Operation Date: 08/03/24 10:45 Actual Procedures p Robotic Laparoscopic Cholecystectomy(Not Applicable) - Carlos Huang DO, HUMBERTO Surgeon Carlos Huang DO, HUMBERTO Industrial Electrician Becky Sharma Estimated Blood Loss 5 Findings Consistent with Post-Op Diagnosis Moderate acute on chronic cholecystitis, critical view of safety obtained, cystic duct and artery doubly clipped and divided Specimens Gallbladder Anesthesia Type General Complications none Disposition Accompanied Patient To Recovery: No Disposition: Recovery Room Indications 64-year-old male with history of recurrent pancreatitis with suspected biliary etiology secondary to EUS with sludge and microlithiasis, plan for robotic ch olecystectomy. The risks of the procedure were discussed, all questions were answered, and the patient agreed to proceed with surgery as planned. Description of Procedure The patient was properly identified, consented, and taken to the operating room where he was placed in the supine position. 2.5 mg of indocyanine green were administered IV approximately 45 min prior to the surgery. General endotracheal anesthesia was induced. SCDs and a safety belt were placed. Preoperative antibiotics were administered. The patient's abdomen was prepped and draped in the standard sterile fashion. A surgical timeout was performed and all parties were in agreement that this was the correct patient and procedure to be performed and we continued as planned. An incision was made just above the umbilicus and to the right of midline. Veress needle was inserted and saline drop test confirmed entry to the abdomen. The abdomen was insufflated with carbon dioxide which the patient tolerated incident. Veress needle was removed and the abdomen is entered using the Optiview technique and a 5 mm camera. The introducer was removed and the abdomen inspected. No damage from initial trocar placement or Veress needle placement was identified. There were no significant abnormalities to the 4 quadrants of the abdomen. 8 mm robotic ports were then placed on the left and right. An additional 5 mm medical research assistant port was placed in the lateral right subcostal position. The patient was placed in reverse Trendelenburg position and rotated towards the left. The robot was then docked and the camera and robotic instruments were inserted. The gallbladder was distended and was moderately inflamed, which appeared to be both acute and chronic. The dome of the gallbladder was grasped by the medical research assistant and retracted towards the left upper quadrant and the infundibulum was retracted toward the right lower quadrant revealing Calot's triangle. Peritoneal attachments were taken down with electrocautery and blunt dissection. The cystic duct and artery were circumferentially dissected. A window of safety was obtained showing the cystic duct entering the gallbladder with no aberrant structures noted. We were able to identify the cystic duct utilizing the ICG. The cystic duct and artery were doubly clipped and divided. During retraction the tear occurred and the gallbladder wall and there was some spillage of bile but no stones. The gallbladder was then lifted off the gallbladder fossa with electrocautery. The right upper quadrant was irrigated and hemostasis was found to be good. The gallbladder was placed in an Endo Catch bag and removed through the one of the port sites. The fascia of the extraction site was closed with a [id number] 0 Vicryl suture utilizing a Troy-Casandra device. The instruments were removed and the robot was undocked. The trochars were removed and the abdomen was allowed to collapse. The skin of all ports was closed with 4-0 Monocryl subcuticular sutures. Dermabond was placed over the wounds. The patient was extubated in the operating room and taken to the PACU where he recovered without apparent incident. All sponge, instrument and needle counts were correct at the conclusion of the procedure. The patient tolerated the procedure well. The physician's medical research assistant was present and scrubbed for the entirety of the case and was essential in positioning the patient, prepping and draping, retraction and exposure, driving the laparoscope, exchange of the robotic instruments removal of the gallbladder, closure of the incisions, and placement of the dressings. I attest to the content of the Intraoperative Record and any orders documented therein. Any exceptions are noted below.
[2024-08-03] MEDS: fentaNYL citrate PF 100 MCG/2 ML VIAL IV PRN (13:25)
[2024-08-03] MEDS: ONDANSETRON INJ 2 MG/ML 2 ML VIAL IV PRN (13:30)
--- NOTE | 2024-08-03 13:45 | Anesthesiology Progress Note ---
Date of Service August 03, 2024 Anesthesia Post Procedure Vital Signs Vital Signs: Temp Pulse Pulse Resp BP BP Pulse Ox 08/03/24 09:47 37.2 C 79 18 159/89 H 95 08/03/24 07:25 37.1 C 76 16 131/88 95 08/02/24 20:00 08/02/24 19:22 36.8 C 92 H 18 152/82 H 94 O2 Del Method 08/03/24 09:47 Room Air 08/03/24 07:25 Room Air 08/02/24 20:00 CPAP 08/02/24 19:22 Room Air Pain Intensity Lower Abdomen: Pain Intensity: 1 Back: Pain Intensity: 4 Transfer of Care Handoff Completed per policy Notes Mental Status: alert / awake / arousable and participated in evaluation Patient Amnestic to Procedure: Yes Nausea / Vomiting: adequately controlled Pain: adequately controlled Airway Patency, RR, SpO2: stable & adequate BP & HR: stable & adequate Hydration State: stable & adequate Anesthetic Complications: no major complications apparent
[2024-08-03] MEDS ORDERED: oxyCODONE HCL IR 5 MG TAB (IMMEDIATE RELEASE) PO PRN ×2 (15:19)
[2024-08-03] MEDS ORDERED: MoRPHine SULFATE 2 MG/ML CARP IV PRN (15:19)
[2024-08-03] MEDS: BUPIVACAINE 0.5 % 5 MG/1 ML MPF 30ML VIAL INFIL ONE (15:35)
[2024-08-03] MEDS: ACETAMINOPHEN 325 MG TAB PO PRN (15:54)
[2024-08-03] MEDS: SENNA 8.6 MG TAB PO SCH (21:12)
[2024-08-03] MEDS: DOCUSATE SODIUM 100 MG CAP PO SCH (21:13)
[2024-08-04 05:58] LABS: Hematocrit (blood only) 37.7 % (42.0-52.0); Hemoglobin 12.8 g/dl (14.0-18.0); Mean Corpuscular Volume 85.3 fL (80.0-100.0); Platelet Count 214 K/uL (130-400); RDW Coefficient of Variation 13.3 % (11.5-14.5); RDW Standard Deviation 41.9 fL (36.4-46.3); Red Blood Count 4.42 M/uL (4.70-6.10); White Blood Count 9.11 K/ul (4.8-10.8)
[2024-08-04 06:15] LABS: Albumin Globulin Ratio 1.3 (0.9-2); Albumin Level 3.7 gm/dl (3.4-5.0); BUN Creatinine Ratio 13.9 (10-20); Bilirubin,Total 0.9 mg/dl (0.2-1.0); Calcium 8.8 mg/dl (8.6-10.3); Creatinine Clr Calc Pharmacy 93.9 ml/min; Globulin 2.9 gm/dl (2.5-4.0); Magnesium 2.1 mg/dl (1.7-2.4); Total Protein 6.6 gm/dl (6.0-8.3)
--- NOTE | 2024-08-04 07:47 | Surgery Progress Note ---
Date of Service August 04, 2024 Assessment & Plan (1) Sludge in gallbladder: Plan: POD#1 robotic cholecystectomy WBC 9, Hbg 12.8, Lipase 49. Vitals signs stable Pt doing well post op, expected post op pain managed by apap. wound c/d/i On fulls without n/v, hungry for more. Will adv to regular diet this AM Okay for dispo from our standpoint when cleared by medicine D/c instructions reviewed, recommend f/u with Dr. Huang in 2 weeks (2) Pancreatitis: Admission and Anticipated Discharge Date Admission Date: July 31, 2024 Supervising Physician Co-Signing Physician Notes Patient seen and examined, labs reviewed, agree with above. POD #1 robotic cholecystectomy for history of pancreatitis believed to be secondary to biliary origin. Doing well, tolerating diet, pain controlled. Abdomen soft, nontender, incisions without infection. Labs unremarkable. Okay to DC to home. Wound care instructions, activity restrictions, and return precautions given. Follow- up with general surgery clinic in 2 weeks. Subjective Patient is feeling well. Expected post op pain but is tolerable. Tolerating liquid diet. Had some lower back pain yesterday post op that is improving. + flatus and had a small BM this AM. Hoping to get by with using tylenol no narcotics. Physical Exam Physical Exam: awake/alert, no distress Gastrointestinal (Abdomen): Inspection/Auscultation: + abdomen distended (mild) and + abdominal surgical incision (c/d/i with skin glue ) Percussion/Palpation: + abdomen tender (expected gary incisional discomfort ) and abdomen soft Results & Data Vital Signs (Past 12 Hours) Vital Signs Temp Pulse Resp BP Pulse Ox O2 Del Method 08/04/24 02:52 98.8 F 75 16 123/75 94 Room Air 08/03/24 23:03 98.6 F 79 16 130/72 94 Room Air PG Care Time/CCT Total # of Minutes Spent Total Time Spent with Patient: Total time spent is greater than 50% in coordination of care (as documented) at patient's floor/unit and/or counseling patient: Coding Level of Care Code 87121 Post Operative Follow-Up Diagnoses Sludge in gallbladder K82.8 Pancreatitis K85.90
--- NOTE | 2024-08-04 07:58 | Hospitalist Progress Note ---
Date of Service August 04, 2024 Assessment & Plan (1) Pancreatitis: Plan: IMPROVED. etiology - biliary induced (has known sludge in GB) vs etoh vs other. doubt etoh - 2 beers ~48 hours prior to the event should not have induced an episode this significant however did have fatty food consumption days leading up to admission and suspicion would be gallbladder sludge induced pancreatitis despite no evidence for acute valerio/choledocholithiasis on imaging. No elevated calcium or TRG, no recent DM medications or viral illness. Work-up for autoimmune pancreatitis 05/25 was negative Provided pain control, IVF and NPO w/ advancement to full liquids and IVF discontinued as tolerated full liquids General surgery, Dr Huang, consulted to see about elective lap valerio given 2nd episode in 3 months. Did obtain liver US which noted ?hepatitis. Noted sludge however as well 08/03 NPO this morning for lap valerio IVF added while NPO and Lovenox SQ on hold LFTs wnl, lipase down to 46 s/p robotic lap valerio w/ Dr Huang 08/03. EBL 5cc. Per OP report, gallbladder was distended and was moderately inflamed, which appeared to be both acute and chronic Given dose Ceftriaxone w/ surgery pre-op, per surgery to continue for 24 hrs Liquid diet for now Continue pain control, antiemetics Bowel regimen w/ colace BID, senna HS added (last BM 07/31) Lovenox to remain on hold until tomorrow Monitor labs/exam on repeat. Hopeful dc tomorrow pending status/exam 08/04 s/p robotic lap valerio w/ Dr Huang 08/03. WBC wnl, afebrile. Hgb 12.8, dilutional from IVF pre-post, op. VSS, stable renal function LFTs wnl except minimal elevation AST 43. Lipase 49. Ceftriaxone IV 24hr post- op. Diet advanced to regular today. PO pain control/monitoring. +small BM this morning Hopeful dc later today if tolerates diet/stable pain control on oral agents (2) Sludge in gallbladder: Plan: as seen on EUS done by Dr Conrad, Alex LO at [facility] on 06/29/24 Most likely cause for current acute pancreatitis rather than etoh however see above, lap valerio for acute on chronic cholecystis per OP report. F/u pathology (3) Sleep apnea: Plan: cont home CPAP at HS (4) Allergy-induced asthma: Plan: no flare at this time and remains on room air. Continues on advair BID, albuterol prn (5) Dyslipidemia: Plan: statin on hold 2nd to above previous lipid profile showed triglyceride level of <125 numerous other triglyceride levels have been wnl and highest was 180s typically triglycerides have to be ~400 or higher to induce pancreatitis (6) Impaired fasting glucose: Plan: hemoglobin a1c 6.2% in 06/2024 BSGs controlled and likely can stop BSG checks in AM if no issues (7) DVT prophylaxis: Plan: Lovenox SQ ordered but held for valerio as above. Per surgery, hold until 08/04. SCDs have been ordered in meantime/ambulation to be encouraged Plan Other chronic issues: Mood d/o - cont Wellbutrin at home dose of 450mg daily Dispo: continued inpatient stay, liquid diet/bowel regimen and pain/antiemetics as needed and hopefully able to advance diet and dc on PO pain control but will monitor exam/labs. updated at bedside 08/03 Admission and Anticipated Discharge Date Admission Date: July 31, 2024 Results & Data Results & Data Vital Signs (Past 12 Hours) Vital Signs Temp Pulse Resp BP Pulse Ox O2 Del Method 08/04/24 02:52 37.1 C 75 16 123/75 94 Room Air 08/03/24 23:03 37 C 79 16 130/72 94 Room Air Laboratory Results 08/04/24 05:35 08/04/24 05:35 TB 0.9 AST 43 ALT 52 ALP 69 Lipase 49 PG Care Time/CCT Total # of Minutes Spent Total Time Spent with Patient: Total time spent is greater than 50% in coordination of care (as documented) at patient's floor/unit and/or counseling patient: Coding Diagnoses Pancreatitis K85.90 Sludge in gallbladder K82.8 Sleep apnea G47.30 Allergy-induced asthma J45.909 Dyslipidemia E78.5 Impaired fasting glucose R73.01 DVT prophylaxis Z29.9
[2024-08-04 08:08] VITALS: TEMP 98.2
--- NOTE | 2024-08-04 08:47 | Discharge Summary ---
Discharge Summary Date of Service August 04, 2024 Principal Dx & Hospital Course #1 = Principal Diagnosis (1) Pancreatitis: 64yo male presented with acute onset of central abdominal pain on 07/[address] Conrad 06/29 after initial admission for pancreatitis in May 2024. Lipase 3758 on admission with normal LFTs. Prior autoimmune workup in may was negative, no elevated Calcium or TRG or recent DM medications or viral illness. Did have 2 beers ~48hrs prior to event but do not suspect induced episode as significant on admission and did have fatty food consumption days leading up to admission and suspicion would be gallbladder sludge induced pancreatitis despite no evidence for acute valerio/choledocholithiasis on imaging Was provided IVF, pain control and bowel rest with improvement/resolution in elevated lipase and discomfort and was tolerating full liquids however consult for surgery for Dr Huang given 2nd episode in 3 months for possible elective valerio s/p robotic lap valerio w/ Dr Huang 08/03. WBC wnl on repeat and remained afebrile. Hgb 12.8, dilutional from IVF pre-post, op. VSS, stable renal function and no sx from such LFTs wnl except minimal elevation AST 43. Lipase 49. Ceftriaxone IV 24hr post-op. Diet advanced to regular 08/04 by surgery and +BM and only using tylenol since surgery for pain but was provided short rx oxycodone for breakthrough pain if needed (and encouraged bowel regimen if needed however he believes will not need/wanting to take as doesn't like how he feels and wanted to avoid constipation) F/u surgery 2 weeks, discussed s/sx to return. F/u PCP 7-10 days. (2) Sludge in gallbladder: as seen on EUS done by Dr Conrad, [facility], at [facility] on 06/29/24 and suspected most likely cause for current acute pancreatitis rather than etoh- see above, s/p lap valerio: acute on chronic cholecystis per OP report. F/u pathology at d/c with PCP (3) Sleep apnea: cont home CPAP at (4) Allergy-induced asthma: no flare at this time and remains on room air. Continued on advair BID, albuterol prn, 95% on RA last check w/o issues reported (5) Dyslipidemia: statin on hold 2nd to above previous lipid profile showed triglyceride level of <125 numerous other triglyceride levels have been wnl and highest was 180s typically triglycerides have to be ~400 or higher to induce pancreatitis statin resumption per PCP in f/u (6) Impaired fasting glucose: hemoglobin a1c 6.2% in 06/2024. BSGs well controlled, f/u PCP [place] (7) DVT prophylaxis: Lovenox SQ ordered while inpatient Notes For Next Care Provider F/u surgery path F/u surgery 2 wks, monitor for any infection F/u hepatitis panel as sent given RUQ findings however LFTs were wnl (exception slight elevation AST 43 prior to dc likely from s/p valerio) Medication Changes From Visit Oxycodone prn for pain, tylenol as needed OTC bowel regimen with colace/senna as needed if ongoing constipation issues Admission HPI Per Admitting Provider Very pleasant 64yo male with history of acute pancreatitis in 05/2024, pre- diabetes, asthma, and hyperlipidemia who presents with the acute onset of francis tral abdominal pain beginning about 0100 this morning. Patient stated he has been in his usual state of health - has felt well without any recent illnesses - and went to bed last pm in normal fashion. About 0100 he was awoken by the abdominal pain. Pain radiated to the low back. He went and had a normal bowel movement about this time but the pain did not jamin. He had nausea without any vomiting. The pain increased & intensified over the next several hours. He states the pain was very similar to his pancreatitis pain in May 2024 and, given how severe the pain was, he presented to the ER for evaluation early this am. He received IV morphine for the pain with good relief. CT abd/pelvis with acute pancreatitis with a normal-appearing gall bladder. He reports he drinks about 1 beer each week. However, he had 2 beers while out to eat with his family on Friday. He had a hamburger with his beer. Despite such he had NO abdominal symptoms following his outing on Friday. He has had NO beer or alcohol since Friday. Last pm for dinner he had a chicken/rice meal from a local food truck downtown. Denies any recent infections. Denies any addition of new diabetic medicines. Admission Exam Per Admitting Provider gen - WD, WN; mildly uncomfortable appearing; awake, alert; pleasant eyes - PERRL HENT - mouth - MMM neck - no JVD, no thyroidmegaly heart - RRR, s1 s2, no murmur lungs - CTA b/l, no rales abd - soft, tender epigastric region/central abdomen, no HSM, no peritoneal signs ext - no edema, pulses of feet 2+ b/l neuro - strength 5/5 x 4 exts; DTRs 2+ b/l upper and lower exts skin - no rash, no jaundice psych - a/o x 3 Discharge Exam General: 64yo male sitting up in chair, appears much improved/NAD, wanting to go home today HEENT: head atraumatic, normocephalic, mm improved, trachea midline Resp: even/unlabored, on room air, no cough/tachypnea CV: RRR, no significant m/r/g, no pitting edema GI: +BS, less distension, no overt tenderness, incision sites look good (minimal contact/irritation to RLQ site from rubbing from pants but no cellulitic appearance/discomfort or drainage. no guarding/rigidity no sims MSK/Neuro: nonfocal, not confused, answering questions appropriately Psych: AOx3, cooperative with exam Discharge Plan Discharge Items Patient Disposition: Home - Self-Care Reason For Visit: ACUTE PANCREATITIS Discharge Diagnosis: pancreatitis cholecystectomy Condition on Discharge: Good Goals: You have been hospitalized for an urgent problem which required surgery. During your stay at [facility], we have made an effort to correct the problem that brought you to the hospital while keeping you as comfortable as possible. Surgery and medications were used to bring your condition under control and your discharge instructions will include directions for any medications you should take after leaving the hospital. Please make sure to follow the advice of your surgeon regarding follow up with the surgeon and with your primary care provider. Activity: As commented below Lifting: No more than 10 pounds Bathing Comment: you can shower. No soaking in pools/baths for 2 weeks Exercise/Sports: Wait until after follow-up appointment Driving/Machine Use: no driving if taking narcotic pain medication Non-emergency contact: Primary Care Provider and Surgeon Call non-emergency contact if: you have any medication questions, your symptoms worsen, your pain is worsening, you have a fever, your temperature is above 101.5, your wound has increased redness, your wound has increased drainage and your wound pain has increased Follow-up/Referrals: Carlos Huang DO, FACS [Physician] - (call office for a follow up in 1-2 weeks ) Eric Muller DO [Primary Care Provider] - Diet: Carb Consistent or DM2, Heart Healthy and Low Fat Cecille Attending Provider Instructions: You have been hospitalized for pancreatitis which is likely combination of recent ERCP/EUS with Dr Conrad but also alcohol/fatty food intake and IV fluids/pain control and bowel rest were provided with resolution in elevated lipase (marker for pancreatitis) however given repeat episode and concerns for underlying gallbladder issues, surgery was consulted. Dr Huang took you for gallbladder removal on 08/02 and you have done well. Diet has been advanced and recommend continuing pain control/bowel regimen and diet advancement to low fat. Sometimes people have some diarrhea following gallbladder removal which typically subsides but if any ongoing issues please contact primary care/surgery. Please follow up with surgery as discussed, primary care in the next 7-10 days to monitor your progress after hospitalization and surgery. Please return to the ER with any increased pain, nausea/vomiting, fever/chills, redness or drainage from incision site, or for any other symptoms concerning for you. It has been a pleasure being a part of the medical team providing for you while you have been in the hospital. Take care! Cecille Head Grease Maker Provider Instructions: SPECIAL CARE INSTRUCTIONS: * Dressing: You have surgical glue called dermabond on your surgical site incisions. You may shower with this on. This will tend to come off within a couple of weeks. Do not pick at it. * You may shower . NO soaking in pools or baths for 2 weeks * No lifting greater than 10lbs. No exercise until cleared by surgeon. Light walking is accepted. * No driving while taking narcotic pain medication * No drinking alcohol while taking narcotic pain medication * May use Ibuprofen/Tylenol over the counter for pain as tolerated. Do not exceed 3grams of Tylenol per 24 hours * You have been prescribed a narcotic called Oxycodone to fill if needed for post op pain not alleviated by tylenol or ibuprofen. You do not need to cherry picker operator this prescription if you do not need it/want it. * Expect some swelling and bruising. * Diet Regular Call your doctor if: * Temperature above 101 degrees, nausea/vomiting, fever/chills * Pain not relieved by pain medicine ordered * There is increased drainage or redness from any incision * You have any unanswered questions or concerns [phone]. FOLLOW UP VISIT: If not already scheduled, please call the office for a follow-up visit. Office Pending Studies at Discharge: Yes Studies:: surgical pathology hepatitis panel Stand-Alone Forms: [email or web address], Pain - Opioid Pain Management, Smoking Cessation Medications and DC Order Prescriptions: New oxycodone 5 mg tablet 5 - 10 mg PO .[id number] PRN (Reason: pain, for initial therapy, max 6 tabs per day) Qty: 10 0RF Continued albuterol sulfate [Ventolin HFA] 90 mcg/actuation HFA aerosol inhaler 2 puff INHALATION Q6H PRN (Reason: Shortness Of Breath Or Wheezing) Qty: 18 3RF Rx Instructions: no fill history available fluticasone propion-salmeterol [Advair HFA] 115-21 mcg/actuation HFA aerosol inhaler 2 puff inhalation BID Qty: 12 2RF Rx Instructions: filled 05/09/24 90 day supply clobetasol 0.05 % cream 1 applic topical BID PRN (Reason: eczema) Qty: 15 1RF Rx Instructions: no fill history available Apply to areas of the legs twice daily x 2 weeks as directed for flaring. 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 buy over the counter - for indigestion/heartburn Held rosuvastatin [Crestor] 10 mg tablet 10 mg PO UD Hold Instructions: hold until discussed with PCP to resume Rx Instructions: 10 mg po hs. no fill history available Discharge Orders: Discharge Order (Routine); Ordered 08/04/24 Ordered By: Chana Phillips/Other Patient Handouts: DVT Post Op Prevention, After Gallbladder Surgery, Having Laparoscopic Cholecystectomy Admission Data Admit Date/Time: 07/31/24 09:48 Attending Provider: Ran Lr Admit Provider: Lincoln Smith Primary Care Provider: Eric Muller Other Providers: Lincoln Smith; Carlos Huang Other Interventions: Discharge Summary Assessment (RN) Last Done: 08/04/24 12:37 Hospital Stay Data Consultations 07/31/24 07:51 ED Decision to Admit Stat 08/02/24 13:31 Consult General Surgery Routine Procedures Performed Operation Date: 08/03/24 10:45 Actual Procedures p Robotic Laparoscopic Cholecystectomy(Not Applicable) - Carlos Huang DO, FACS Diagnostic Imagining Performed Abdomen/Pelvis CT 07/31/24 04:30 EXAM: CT abd pelvis IV con only CLINICAL HISTORY: Abdominal pain, h/o pancreatitis and GB sludge TECHNIQUE: Contiguous axial images were obtained from the level of the diaphragm to the pubic symphysis with intravenous contrast. Coronal and sagittal reconstructions were likewise performed and indicated to increase the sensitivity for detecting clinically relevant pathology. If IV contrast material had not been administered, the likelihood of detecting abnormalities relevant to the patient's condition would have been substantially decreased. CT scan was performed according to ALARA (as low as reasonable achievable). COMPARISON: 11 May 2024 FINDINGS: The visualized lung bases are clear. The liver shows normal enhancement with a prominent papillary process of caudate lobe (normal anatomical variant). No focal liver lesions are seen. There is no intra or extrahepatic biliary ductal dilatation. Hepatic vasculature is patent. The gallbladder is unremarkable. The spleen and adrenal glands are unremarkable. The pancreas appears bulky with mild peripancreatic fat stranding and fluid. No organized or obvious hypoenhancing parenchymal area to suggest necrosis is seen on the present scan. The kidneys are normal in size and enhancement. There is no hydronephrosis or perinephric fat stranding. No renal calculi or renal masses are identified. The ureters are normal in caliber. The bladder is normal in contour. Few enlarged periportal and peripancreatic lymph nodes are noted, largest measuring 1.1 cm in short axis diameter (reactive lymphadenopathy). Redundant sigmoid colon is noted. Multiple small uncomplicated colonic diverticulosis Left small fat-containing inguinal hernia is noted. Anterior wedge-shaped compression fracture of L2 vertebral body is seen, with loss of 50% vertebral body height. IMPRESSION: 1. Acute edematous pancreatitis, with modified CT severity index of 4/10 (moderate pancreatitis).- peripancreatic fat stranding is increased. 2. Reactive lymphadenopathy.-stable. 3. Uncomplicated colonic diverticulosis.-stable. 4. Anterior wedge-shaped compression fracture of L2 vertebral body, with loss of 50% vertebral body height.-stable. Electronically signed by Shawn Austin 07-31-2024 07:28 AM Chest X-Ray 07/31/24 04:30 EXAM: XR chest 1V portable CLINICAL HISTORY: Abdominal pain TECHNIQUE: X-ray images of the chest were obtained in frontal projection. COMPARISON: 05/10/2021 FINDINGS: Pulmonary Parenchyma: Lungs are clear bilaterally. No evidence of consolidation, collapse, or focal opacities. No pulmonary nodules identified. No evidence of pleural effusion or pleural thickening. Heart and Mediastinum: Heart size and shape are normal. No mediastinal widening or masses. No hilar or mediastinal lymphadenopathy. Bony Thorax: Bony thorax appears intact without fractures or deformities. Soft Tissues: Soft tissues overlying the chest wall are unremarkable. IMPRESSION: 1. Normal chest X-ray. No acute cardiopulmonary abnormalities identified. 2. No interval changes. Electronically signed by Dennis Gee 07-31-2024 06:57 AM Liver Ultrasound 08/02/24 13:16 EXAM: US liver CLINICAL HISTORY: pancreatitis . TECHNIQUE: Real-time grayscale and Doppler ultrasound imaging of the right upper quadrant of the abdomen was performed. COMPARISON: 07/31/2024 FINDINGS: Liver: Liver is mildly enlarged in size and shows increased portal triads echogenicity, measuring 19.5 cm. No focal lesions, cysts, or masses were identified. No intrahepatic bile duct dilatation. Normal flow in the main portal vein. Gallbladder and Biliary System: Gallbladder is visualized with normal wall thickness, measures 0.23 cm. It shows internal sludge. No gallstones were identified. Common bile duct: CBD with normal diameter(0.4 cm), with no dilatation. Pancreas: The pancreas is obscured by bowel gases. Right kidney: Right kidney: 10.2 cm in length, normal in size, shape, echotexture No hydronephrosis, calculi, or masses were identified. Renal parenchymal echogenicity is normal. Cortical thickness: Normal Other Findings: No free fluid in the scanned abdomen. IMPRESSION: Mild hepatomegaly with increased portal triads echogenicity, suggesting acute hepatitis, correlation with LFTs is recommended. Sludge in the gall bladder. The pancreas is obscured by bowel gases. Clinical correlation is recommended for further evaluation. Electronically signed by Dennis Gee 08-02-2024 9:26 PM Pending Results Patient Have Any Pending Studies at Discharge: Yes Discharge Instructions Given to Patient (Per Discharging Provider) You have been hospitalized for pancreatitis which is likely combination of recent ERCP/EUS with Dr Conrad but also alcohol/fatty food intake and IV fluids/pain control and bowel rest were provided with resolution in elevated lipase (marker for pancreatitis) however given repeat episode and concerns for underlying gallbladder issues, surgery was consulted. Dr Huang took you for gallbladder removal on 08/02 and you have done well. Diet has been advanced and recommend continuing pain control/bowel regimen and diet advancement to low fat. Sometimes people have some diarrhea following gallbladder removal which typically subsides but if any ongoing issues please contact primary care/surgery. Please follow up with surgery as discussed, primary care in the next 7-10 days to monitor your progress after hospitalization and surgery. Please return to the ER with any increased pain, nausea/vomiting, fever/chills, redness or drainage from incision site, or for any other symptoms concerning for you. It has been a pleasure being a part of the medical team providing for you while you have been in the hospital. Take care! Supervising Physician Co-Signing Physician Notes The patient was not seen by me. The chart was reviewed. Case discussed with INGRIS Berg. Agree with assessment and plan Total Time Total Time Spent Total Time Spent (In Minutes): 45 Coding Level of Care Code 85724 INP/OBS DISCH >30 MIN Diagnoses Pancreatitis K85.90 Sludge in gallbladder K82.8 Sleep apnea G47.30 Allergy-induced asthma J45.909 Dyslipidemia E78.5 Impaired fasting glucose R73.01 DVT prophylaxis Z29.9
[2024-08-04] MEDS: cefTRIAXone SODIUM 2,000 MG/50 ML BAG IV SCH (10:34)
[2024-08-04 11:55] VITALS: BP 130/83; PULSE 76; RESP 17; O2SAT 95
[2024-08-04 14:32] LABS: Hepatitis A Antibody IgM NON-REACTIVE (NON-REACTIVE); Hepatitis B Core Antibody IgM NON-REACTIVE (NON-REACTIVE)
== END 2024-08-04 13:13 | disposition home or self-care (01) | DRG 417 ==
LOC: ED 04:09 → 3E 09:48 → SUATTDRO 09:48 → 3E 10:05